=== PATIENT | male | born 1980 | race African-American/Black ===

== ENCOUNTER 2018-10-03 13:19 | Observation (INO) ==
[2018-10-03] MEDS ORDERED: 0.9 % Sodium Chloride 1,000 ML IVC ONE (14:00)
--- NOTE | 2018-10-03 14:02 | Emergency Department Note ---
Disposition Clinical Impression: History of seizure disorder, Psychiatric illness, Marijuana abuse, Alcohol withdrawal delirium, acute, hyperactive Disposition: Admitted As Inpatient Referrals: NONE,PCP [Primary Care Provider] - Forms: ED Satisfaction Letter Time of Disposition: 20:19 General Adult HPI - General Chief complaint: ED Seizure Stated complaint: albinozures Time Seen by Provider: 10/03/18 13:30 Source: patient, EMS Limitations: no limitations - History of Present Illness HPI Narrative: 38-year-old male with a history of seizure disorder and psychiatric disease reports emergency department with tremulousness and confusion. There is no history of trauma given he is not known to be diabetic. The patient had a recent CT scan scan of his head which was negative in July of this year. The patient is unable to give a clear history regarding his concerns. Nursing noticed tremulous behavior and confusion. No other history is immediately available from the patient. On review of the records the patient has a history of alcohol abuse and alcohol withdrawal. No trauma is reported. Pain Scale: 0 - Related Data Home Medications Medication Instructions Recorded Confirmed levETIRAcetam [Levetiracetam] 1,000 mg PO BID 03/12/18 05/04/18 Buspirone HCl [Buspar] 5 mg PO BID 05/04/18 05/04/18 Citalopram [CeleXA] 20 mg PO DAILY 05/04/18 05/04/18 Melatonin 1 mg PO HS 05/04/18 05/04/18 Previous Rx's Medication Instructions Recorded hydrOXYzine pamoate [HydrOXYzine 50 mg PO TID #14 cap 07/22/18 Pamoate] Allergies Allergy/AdvReac Type Severity Reaction Status Date / Time No Known Allergies Allergy Verified 08/17/18 18:04 All systems ED: reviewed and negative except as stated. Limitations: ROS unobtainable due to patients medical condition Past Medical History - Past Medical History Medical history: Reports: seizures, other Surgical history: Reports: non-contributory Psychiatric history: Reports: no psych history - Social History Smoking Status: Current every day smoker Smokeless Tobacco Status: No Alcohol use: Reports: occasionally, heavy, recent Drug use: Reports: marijuana Physical Exam - General Limitations: no limitations General appearance: alert, anxious, other (The patient is tremulous in general, he is holding a TV remote control in his hand speaking into it occasionally looking around the room not responding to questioning or following commands well. Piloerection noted.) - Head Head exam: atraumatic, normocephalic, normal inspection - Eye Eye exam: Present: normal appearance, PERRL, EOMI - ENT ENT exam: normal exam, normal oropharynx, mucous membranes moist, TM's normal bilaterally, normal external ear exam - Neck Neck exam: Present: normal inspection, full ROM, trachea midline - Chest Chest inspection: Present: symmetric chest wall rise. Absent: tenderness - Respiratory Respiratory exam: Present: normal lung sounds bilaterally. Absent: respiratory distress, prolonged expiratory phase - Cardiovascular Cardiovascular exam: Present: regular rate, normal rhythm - Abdominal Exam Abdominal exam: Present: soft, Non-Tender, normal bowel sounds. Absent: tend erness, distention, guarding, rebound, rigidity - Extremities Exam Extremities exam: Present: normal inspection, full ROM, normal capillary refill. Absent: tenderness, pedal edema, joint swelling, calf tenderness - Expanded Lower Extremity Exam Neurovascular/Tendon exam: Present: normal capillary refill. Absent: motor deficit, sensory deficit, tendon deficit, extremity cold to touch - Back Exam Back exam: Present: normal inspection, full ROM. Absent: tenderness, CVA tenderness (R), CVA tenderness (L), vertebral tenderness - Neurological Exam Neurological exam: Present: alert, CN II-XII intact, other (The patient moves head neck arms and legs in usual fashion and displays no unilateral defect.) - Psychiatric Psychiatric exam: Present: agitated, anxious - Skin Skin exam: Present: warm, dry, intact, normal color Course Vital Signs Temperature 98.6 F 10/03/18 13:25 Pulse Rate 82 10/03/18 13:25 Respiratory Rate 18 10/03/18 13:25 Blood Pressure 150/103 10/03/18 13:25 O2 Sat by Pulse Oximetry 100 10/03/18 13:25 Temperature 98.6 F 10/03/18 13:25 Pulse Rate 87 10/03/18 18:00 Respiratory Rate 24 10/03/18 18:00 Blood Pressure 146/92 10/03/18 18:00 O2 Sat by Pulse Oximetry 98 10/03/18 18:00 Oxygen Delivery Oxygen Delivery Room Air Medical Decision Making - MDM Narrative Medical decision making narrative: The patient was highly agitated tremulous and confused on arrival. 2 mg of Ativan were given, persistent tremulousness confusion and agitation were noted. A second dose of Ativan was given. The patient persisted in his confused state and was given Haldol and benztropine. IV fluid was also given. Chest x-ray EKG and laboratory studies obtained and reviewed. The patient improved and became more alert. I spoke with him directly, he describes a history of alcohol abuse and has not had any alcohol recently The patient's presentation is consistent with delirium tremens and alcohol withdrawal. He does have a history of psychiatric illness and does have a history of seizure disorder complicating the clinical picture. Based on the patient's significant confusion, potential delirium tremens, reported seizure disorder and acute confusional state, I thought it would be appropriate to admit the patient the hospital. He feels improved and is being monitored continuously. He is agreeable. I discussed the case with the hospitalist on-call who has accepted the patient to their care. The patient is pending admission. - Lab Data Lab results reviewed: Yes I reviewed the patient's lab results. Result diagrams: 10/03/18 14:23 10/03/18 14:23 Lab Results 10/03/18 10/03/18 10/03/18 Range/Units 14:23 14:23 16:36 WBC 11.1 (4.3-11.1) K/mcL RBC 4.73 (4.19-5.50) M/mcL Hgb 14.7 (12.9-16.9) g/dL Hct 42.8 (37.5-50.1) % MCV 90.5 (83.0-100.0) fL MCH 31.1 (28.0-33.3) pg MCHC 34.3 (31.6-35.5) g/dL RDW 13.2 (11.5-14.5) % Plt Count 259 (140-400) K/mcL MPV 10.7 (9.4-12.4) fL Immature Gran % 0.4 (0-4) % Seg Neutrophils % 74.1 % Lymphocytes % 15.5 % Monocytes % 9.4 % Eosinophils % 0.1 % Basophils % 0.5 % Neutrophils # 8.2 (1.6-8.9) K/mcL Lymphocytes # 1.7 (0.6-4.6) K/mcL Monocytes # 1.0 (0.0-1.3) K/mcL Eosinophils # 0.0 (0.0-0.6) K/mcL Basophils # 0.1 (0.0-0.2) K/mcL Sodium 141 (136-145) mEq/L Potassium 3.7 (3.5-5.1) mEq/L Chloride 101 (98-107) mEq/L Carbon Dioxide 26 (23-29) mEq/L BUN 7 (6-20) mg/dL Creatinine 0.71 (0.70-1.30) mg/dL Est GFR ( Amer) > 60 (> 60) Est GFR (Non-Af Amer) > 60 (> 60) BUN/Creatinine Ratio 10 (6-26) Glucose 171 H (70-105) mg/dL Calculated Osmolality 294 (280-300) Calcium 10.2 (8.6-10.3) mg/dL Total Bilirubin 0.7 (0.3-1.0) mg/dL Direct Bilirubin 0.1 (0.0-0.2) mg/dL Indirect Bilirubin 0.6 (0.0-1.2) mg/dL AST 49 H (13-39) Units/L ALT 37 (7-52) Units/L Alkaline Phosphatase 79 (34-104) Units/L Serum Total Protein 7.5 (6.4-8.9) g/dL Albumin 5.0 (3.5-5.7) g/dL Globulin 2.5 (2.4-3.5) g/dL Albumin/Globulin Ratio 2.0 (1.1-2.2) Urine Color Yellow (Yellow) Urine Clarity Clear (Clear) Urine pH 8.0 (5.0-8.0) pH Units Ur Specific Harper 1.017 (1.010-1.025) Urine Protein Negative (Neg-Trace) mg/dL Urine Glucose (UA) Normal (Normal) mg/dL Urine Ketones 15 H (Negative) mg/dL Urine Blood Negative (Negative) Urine Nitrite Negative (Negative) Urine Bilirubin Negative (Negative) Urine Urobilinogen Normal (Normal) mg/dL Ur Leukocyte Esterase Negative (Negative) Salicylates < 2.5 L (15.0-30.0) mg/dL Urine Opiates Screen (Nixdbc=177) ng/mL Ur Buprenorphine Scrn (Cutoff=5) ng/mL Acetaminophen < 10 L (10-20) mcg/mL Ur Barbiturates Screen (Wlcumk=308) ng/mL Ur Phencyclidine Scrn (Cutoff=25) ng/mL Ur Amphetamines Screen (Wyazcz=0105) ng/mL U Benzodiazepines Scrn (Xrckdw=484) ng/mL Urine Cocaine Screen (Cutoff= 300) ng/mL U Marijuana (THC) Screen (Cutoff = 50) ng/mL Ur Drug Screen Interp Ethyl Alcohol < 10 (Less than 10) mg/dL 10/03/18 Range/Units 16:50 WBC (4.3-11.1) K/mcL RBC (4.19-5.50) M/mcL Hgb (12.9-16.9) g/dL Hct (37.5-50.1) % MCV (83.0-100.0) fL MCH (28.0-33.3) pg MCHC (31.6-35.5) g/dL RDW (11.5-14.5) % Plt Count (140-400) K/mcL MPV (9.4-12.4) fL Immature Gran % (0-4) % Seg Neutrophils % % Lymphocytes % % Monocytes % % Eosinophils % % Basophils % % Neutrophils # (1.6-8.9) K/mcL Lymphocytes # (0.6-4.6) K/mcL Monocytes # (0.0-1.3) K/mcL Eosinophils # (0.0-0.6) K/mcL Basophils # (0.0-0.2) K/mcL Sodium (136-145) mEq/L Potassium (3.5-5.1) mEq/L Chloride (98-107) mEq/L Carbon Dioxide (23-29) mEq/L BUN (6-20) mg/dL Creatinine (0.70-1.30) mg/dL Est GFR ( Amer) (> 60) Est GFR (Non-Af Amer) (> 60) BUN/Creatinine Ratio (6-26) Glucose (70-105) mg/dL Calculated Osmolality (280-300) Calcium (8.6-10.3) mg/dL Total Bilirubin (0.3-1.0) mg/dL Direct Bilirubin (0.0-0.2) mg/dL Indirect Bilirubin (0.0-1.2) mg/dL AST (13-39) Units/L ALT (7-52) Units/L Alkaline Phosphatase (34-104) Units/L Serum Total Protein (6.4-8.9) g/dL Albumin (3.5-5.7) g/dL Globulin (2.4-3.5) g/dL Albumin/Globulin Ratio (1.1-2.2) Urine Color (Yellow) Urine Clarity (Clear) Urine pH (5.0-8.0) pH Units Ur Specific Harper (1.010-1.025) Urine Protein (Neg-Trace) mg/dL Urine Glucose (UA) (Normal) mg/dL Urine Ketones (Negative) mg/dL Urine Blood (Negative) Urine Nitrite (Negative) Urine Bilirubin (Negative) Urine Urobilinogen (Normal) mg/dL Ur Leukocyte Esterase (Negative) Salicylates (15.0-30.0) mg/dL Urine Opiates Screen Negative (Dldvgd=743) ng/mL Ur Buprenorphine Scrn Negative (Cutoff=5) ng/mL Acetaminophen (10-20) mcg/mL Ur Barbiturates Screen Negative (Nlejck=335) ng/mL Ur Phencyclidine Scrn Negative (Cutoff=25) ng/mL Ur Amphetamines Screen Negative (Vgktnq=8430) ng/mL U Benzodiazepines Scrn Negative (Yoeafd=564) ng/mL Urine Cocaine Screen Negative (Cutoff= 300) ng/mL U Marijuana (THC) Screen Positive H (Cutoff = 50) ng/mL Ur Drug Screen Interp See Below Ethyl Alcohol (Less than 10) mg/dL - Radiology Data Radiology results reviewed: Yes I reviewed the patient's radiology results.
[2018-10-03] MEDS ORDERED: *HR* LORazepam 2 MG/ML VIAL ONE (14:19)
[2018-10-03] MEDS ORDERED: *HR* LORazepam 2 MG/ML VIAL IVP ONE ×2 (14:21→14:57)
[2018-10-03 14:37] LABS: Basophils # 0.1 K/mcL (0.0-0.2); Basophils % 0.5 %; Eosinophils % 0.1 %; Hematocrit 42.8 % (37.5-50.1); Hemoglobin 14.7 g/dL (12.9-16.9); Immature Granulocytes % 0.4 % (0-4); Lymphocytes # 1.7 K/mcL (0.6-4.6); Lymphocytes % 15.5 %; Mean Corpuscular HGB Conc 34.3 g/dL (31.6-35.5); Mean Corpuscular Hemoglobin 31.1 pg (28.0-33.3); Mean Corpuscular Volume 90.5 fL (83.0-100.0); Mean Platelet Volume 10.7 fL (9.4-12.4); Monocytes % 9.4 %; Neutrophils # 8.2 K/mcL (1.6-8.9); Platelet Count 259 K/mcL (140-400); Red Blood Count 4.73 M/mcL (4.19-5.50); Red Cell Distribution Width 13.2 % (11.5-14.5); Segmented Neutrophils % 74.1 %; White Blood Count 11.1 K/mcL (4.3-11.1)
[2018-10-03 14:57] LABS: Acetaminophen < 10 mcg/mL (10-20); Alanine Aminotransferase 37 Units/L (7-52); Alkaline Phosphatase 79 Units/L (34-104); Aspartate Amino Transferase 49 Units/L (13-39); BUN/Creatinine Ratio 10 (6-26); Bilirubin,Direct 0.1 mg/dL (0.0-0.2); Bilirubin,Indirect 0.6 mg/dL (0.0-1.2); Bilirubin,Total 0.7 mg/dL (0.3-1.0); Blood Urea Nitrogen 7 mg/dL (6-20); Calcium 10.2 mg/dL (8.6-10.3); Carbon Dioxide 26 mEq/L (23-29); Chloride 101 mEq/L (98-107); Ethanol < 10 mg/dL (Less than 10); Globulin 2.5 g/dL (2.4-3.5); Glucose 171 mg/dL (70-105); Osmolality,Calculated 294 (280-300); Potassium 3.7 mEq/L (3.5-5.1); Salicylate < 2.5 mg/dL (15.0-30.0); Sodium 141 mEq/L (136-145); Total Protein 7.5 g/dL (6.4-8.9); eGFR For African Americans > 60 (> 60); eGFR For Non-African Americans > 60 (> 60)
[2018-10-03] MEDS ORDERED: Haloperidol Lactate 5 MG/ML VIAL ONE (15:07)
[2018-10-03] MEDS ORDERED: Haloperidol Lactate 5 MG/ML VIAL IM ONE (15:09)
[2018-10-03 17:02] LABS: Bilirubin,Urine Negative (Negative); Blood,Urine Negative (Negative); Clarity,Urine Clear (Clear); Color,Urine Yellow (Yellow); Glucose,Urine (UA) Normal (Normal); Ketones,Urine 15 mg/dL (Negative); Leukocyte Esterase,Urine Negative (Negative); Nitrite,Urine Negative (Negative); Protein,Urine Negative (Neg-Trace); Specific Gravity,Urine 1.017 (1.010-1.025); Urobilinogen,Urine Normal (Normal)
[2018-10-03 17:19] LABS: Amphetamine Screen,Urine Negative ng/mL (Cutoff=1000); Barbiturate Screen,Urine Negative ng/mL (Cutoff=200); Benzodiazepines Screen,Urine Negative ng/mL (Cutoff=200); Cannabinoid Screen,Urine Positive ng/mL (Cutoff = 50); Cocaine Screen,Urine Negative ng/mL (Cutoff= 300); Opiate Screen,Urine Negative ng/mL (Cutoff=300); Phencyclidine Screen,Urine Negative ng/mL (Cutoff=25)
[2018-10-03] MEDS ORDERED: *HR* LORazepam 2 MG/ML VIAL IVP PRN (20:27)
--- NOTE | 2018-10-03 20:43 | Internal Med History&Physical ---
Date of Encounter: 10/03/18 Time of Encounter: 20:42 Internal Medicine - H&P: HPI Chief complaint: Right Lower Quadrant abdominal pain History of present illness: Mr. Baum is a 38 year old male with a past medical history of seizures and depression who presented to the ED with tremulousness and confusion. Patient is unable to give a clear history regarding his concerns. Nursing noticed tremulous behavior and confusion. No other history is immediately available fr om the patient. On review of the records the patient has a history of alcohol abuse and alcohol withdrawal. No trauma is reported. On my assessment the patient he was awake and alert to self. Hands were noted to be tremulous. He he was unsure as to where he was or how he got there. Patient could not tell me if he had a seizure or when his last seizure was. Patient states he is compliant with his medications. He apparently reported a history of alcohol abuse in the ED but denies any alcohol use recently. Denies any fever, chills, chest pain, shortness of breath, cough, nausea, vomiting, diarrhea. On arrival patient was afebrile, hemodynamically stable. Lab work was unremarkable. Urine toxicology positive for marijuana. Ethanol level less than 10. Chest x-ray was normal. A Keppra level was obtained which was found to be low. 2 mg of Ativan were given, persistent tremulousness confusion and agitation. Based on the patient's significant confusion, potential delirium tremens, reported seizure disorder and acute confusional state, patient was admitted for further evaluation and observation. Past Med Surg Social Fam HX - Past Medical History Medical history: seizures, other Psychiatric history: no psych history - Past Surgical History Surgical History: non-contributory Additional surgical history: fistula to buttock - Social History Smoking Status: Current every day smoker Smokeless Tobacco Status: No Alcohol use: occasionally, heavy, recent Drug use: marijuana - Family History Mother Hx Family Endocrine Disorder: Yes (dm) Father Hx Family Endocrine Disorder: Yes (dm) Internal Medicine - H&P: Meds levETIRAcetam [Levetiracetam] 1,000 mg PO BID 03/12/18 [History] Buspirone HCl [Buspar] 5 mg PO BID 05/04/18 [History] Citalopram [CeleXA] 20 mg PO DAILY 05/04/18 [History] Melatonin 1 mg PO HS 05/04/18 [History] hydrOXYzine pamoate [HydrOXYzine Pamoate] 50 mg PO TID #14 cap 07/22/18 [Rx] Allergy/AdvReac Type Severity Reaction Status Date / Time No Known Allergies Allergy Verified 08/17/18 18:04 All Systems PM: A 10-system review of systems was performed and is negative for pertinent findings except as documented above in the HPI. - Constitutional Constitutional: no chills, no fever(s), no night sweats - EENT Eyes: no change in vision, no discharge, no pain, no photophobia Ears: no ear discharge, no ear pain, no tinnitus Nose, mouth and throat: no dysphagia, no nasal discharge, no neck pain, no sore throat - Cardiovascular Cardiovascular ROS IM: no chest pain, no diaphoresis, no dyspnea, no lightheadedness, no palpitations, no syncope - Respiratory Respiratory: no cough, no dyspnea, no wheezing, no excessive phlegm production - Gastrointestinal Gastrointestinal: no abdominal pain, no diarrhea, no hematemesis, no hematochezia, no melena, no nausea, no vomiting - Musculoskeletal Musculoskeletal ROS IM: no numbness, no tingling - Integumentary Integumentary IM: no rash, no unusual bruising - Neurological Neurological ROS: no confusion, no convulsions, no focal weakness, no numbness, no tingling, no tremor(s) - Hematologic/Lymphatic Hematologic/Lymphatic: no easy bruising - Constitutional Vitals: Temp Pulse Resp BP Pulse Ox 98.6 F 87 24 146/92 98 10/03/18 13:25 10/03/18 18:00 10/03/18 18:00 10/03/18 18:00 10/03/18 18:00 Exam: General: Alert and oriented 3 Skin:Normal color, no rash, no lesions. HEENT:EOM, pupils equal, round and reactive. Cardiovascular:Normal S1 & S2, no rubs, murmurs or gallops. No JVD. Pulse regular. Lungs:Normal breath sounds, no wheezes or crackles. Abdomen:Soft, non-tender, no rigidity. Extremities:No deformity, no edema or tenderness, no joint swelling or clubbing. Palms tremulous Neurological:Normal cognition and motor skills. Pulses:Carotid and radial pulses normal +2. Rest of the physical exam is non contributory Internal Med - H&P Results - Labs CBC & Chem 7: 10/03/18 14:23 10/03/18 14:23 Labs: Short CBC 10/03/18 Range/Units 14:23 WBC 11.1 (4.3-11.1) K/mcL Hgb 14.7 (12.9-16.9) g/dL Hct 42.8 (37.5-50.1) % Plt Count 259 (140-400) K/mcL Neutrophils # 8.2 (1.6-8.9) K/mcL BMP 10/03/18 14:23 Sodium 141 Potassium 3.7 Chloride 101 Carbon Dioxide 26 BUN 7 Creatinine 0.71 Glucose 171 H Calcium 10.2 Liver Function 10/03/18 Range/Units 14:23 Total Bilirubin 0.7 (0.3-1.0) mg/dL Direct Bilirubin 0.1 (0.0-0.2) mg/dL AST 49 H (13-39) Units/L ALT 37 (7-52) Units/L Alkaline Phosphatase 79 (34-104) Units/L Albumin 5.0 (3.5-5.7) g/dL Urine 10/03/18 Range/Units 16:36 Urine Color Yellow (Yellow) Urine Clarity Clear (Clear) Urine pH 8.0 (5.0-8.0) pH Units Ur Specific [place] 1.017 (1.010-1.025) Urine Protein Negative (Neg-Trace) mg/dL Urine Glucose (UA) Normal (Normal) mg/dL - Impressions ITS Impressions Chest X-Ray 10/03/18 14:01 IMPRESSION: No acute cardiopulmonary findings. D/ / Jennifer Vu MD / Jennifer Vu MD Interpreting Provider: Jennifer Vu MD - Assessment and Plan (1) Encephalopathy Current Visit: No Status: Resolved Assessment and plan: Acute encephalopathy characterized by confusion, agitation and tremulousness in the setting of previous history of alcohol, substance abuse and seizures. Laboratory workup was unremarkable. Urine drug screen positive for marijuana. Differential includes possible alcohol withdrawal versus seizures. Keppra level found to be low. Patient received 2 mg of Ativan due to his tremulousness and agitation concerning for alcohol withdrawal. -We will admit patient and place on CIWA protocol -Seizure precautions -Given patient's low Keppra level will give one-time dose of 1 thousand milligrams of Keppra IV. (2) Alcohol withdrawal Current Visit: No Status: Acute Assessment and plan: Given patient's history of alcohol use and tremulousness we will start patient on CIWA protocol. We will start patient on banana bag. Qualifiers: Complication of substance-induced condition: with delirium Qualified Code(s): F10.231 - Alcohol dependence with withdrawal delirium (3) History of seizure disorder Current Visit: Yes Status: Acute Assessment and plan: History of seizure disorder. Patient is currently on 1000 g of Keppra twice a day. As noted above, Keppra level was found to be low. Patient given a one- time dose of IV Keppra 1000 mg. -Resume home dose in the morning - Time Spent With Patient Total time spent is greater than 50% in coordination of care (as documented) at patient's floor/unit and/or counseling patient:
[2018-10-03] MEDS: 0.9 % Sodium Chloride 1,000 ML IVC SCH (22:11)
[2018-10-04] MEDS ORDERED: levETIRAcetam 1,000 MG in 0.9 % Sodium Chloride 100 ML IVPB ONE (04:58)
[2018-10-04] MEDS ORDERED: levETIRAcetam 250 MG TABLET PO SCH (09:00)
--- NOTE | 2018-10-04 09:13 | Internal Med Progress Note ---
Hospitalist Progress Note - Encounter Date of Encounter: 10/04/18 Time of Encounter: 09:09 - Subjective Interval History: Pt seen and examined in the room. he is currently alert and oriented, answering questions appropriately. He reported that he had no further seizure activity overnight. He also reported that he has not been drinking alcohol for last 2-3 days. He has been trying to be sober in the past but had never been participated in any detox program. He also reported headache has been taking all his medications including AED. He admitted he has been using marijuana but denies taking other illicit drugs. - Exam Vitals: Temp Pulse Resp BP Pulse Ox 98.1 F 65 16 147/82 99 10/04/18 07:07 10/04/18 07:07 10/04/18 07:07 10/04/18 07:07 10/04/18 07:07 Exam: General: Alert and oriented 3 Skin:Normal color, no rash, no lesions. HEENT:EOM, pupils equal, round and reactive. Cardiovascular:Normal S1 & S2, no rubs, murmurs or gallops. No JVD. Pulse regular. Lungs:Normal breath sounds, no wheezes or crackles. Abdomen:Soft, non-tender, no rigidity. Extremities:No deformity, no edema or tenderness, no joint swelling or clubbing. Palms tremulous Neurological:Normal cognition and motor skills. Pulses:Carotid and radial pulses normal +2. Rest of the physical exam is non contributory - Assessment and Plan (1) Encephalopathy Current Visit: No Status: Resolved Assessment and Plan: 10/03 Acute encephalopathy characterized by confusion, agitation and tremulousness in the setting of previous history of alcohol, substance abuse and seizures. Laboratory workup was unremarkable. Urine drug screen positive for marijuana. Differential includes possible alcohol withdrawal versus seizures. Keppra level found to be low. Patient received 2 mg of Ativan due to his tremulousness and agitation concerning for alcohol withdrawal. -We will admit patient and place on [facility] protocol -Seizure precautions -Given patient's low Keppra level will give one-time dose of 1 thousand milligrams of Keppra IV. 10/04 Patient mental status has returned to his baseline. He has history of alcohol abuse as well as seizure disorder. Both serum alcohol and the Keppra level were low, indicating that patient likely noncompliant with treatment, he is also likely undergoing alcohol withdrawal. He received IV Ativan and the Keppra at the ED. Keppra was resumed at home dose. Neurology was consulted, appreciate help. Continue CIWA, Ativan as needed, and thiamine and folate supplementation. (2) Alcohol withdrawal Current Visit: No Status: Acute Assessment and Plan: Same as above. (3) History of seizure disorder Current Visit: No Status: Chronic Assessment and Plan: History of seizure disorder. Patient is currently on 1000 g of Keppra twice a day. As noted above, Keppra level was found to be low. Patient given a one- time dose of IV Keppra 1000 mg. Patient reported he had a seizure, however, based on the history, it looks like he only had a tremor instead of seizure activity. By reviewing the chart, patient had a similar complaint in the past about 6 months ago, at that time, EKG was negative for epileptic waveform. We will continue Keppra at the home dose at this point, consult neurology. DVT Prophylaxis: Heparin subcutaneous. - Time Spent with Patient Total time spent is greater than 50% in coordination of care (as documented) at patient's floor/unit and/or counseling patient: Greater than 35 minutes Plan of Care Discussed with: patient Internal Medicine: Result - Labs CBC & Chem 7: 10/03/18 14:23 10/03/18 14:23 Labs: Short CBC 10/03/18 Range/Units 14:23 WBC 11.1 (4.3-11.1) K/mcL Hgb 14.7 (12.9-16.9) g/dL Hct 42.8 (37.5-50.1) % Plt Count 259 (140-400) K/mcL Neutrophils # 8.2 (1.6-8.9) K/mcL BMP 10/03/18 14:23 Sodium 141 Potassium 3.7 Chloride 101 Carbon Dioxide 26 BUN 7 Creatinine 0.71 Glucose 171 H Calcium 10.2 Liver Function 10/03/18 Range/Units 14:23 Total Bilirubin 0.7 (0.3-1.0) mg/dL Direct Bilirubin 0.1 (0.0-0.2) mg/dL AST 49 H (13-39) Units/L ALT 37 (7-52) Units/L Alkaline Phosphatase 79 (34-104) Units/L Albumin 5.0 (3.5-5.7) g/dL Urine 10/03/18 Range/Units 16:36 Urine Color Yellow (Yellow) Urine Clarity Clear (Clear) Urine pH 8.0 (5.0-8.0) pH Units Ur Specific [place] 1.017 (1.010-1.025) Urine Protein Negative (Neg-Trace) mg/dL Urine Glucose (UA) Normal (Normal) mg/dL - Impressions Impressions Chest X-Ray 10/03/18 14:01 IMPRESSION: No acute cardiopulmonary findings. D/ / Jennifer uV MD / Jennifer Vu MD Interpreting Provider: Jennifer Vu MD Consult Discharge Plan - Plan Referrals: NONE,PCP [Primary Care Provider] - (2) Alcohol withdrawal Qualifiers: Complication of substance-induced condition: with delirium Qualified Code(s): F10.231 - Alcohol dependence with withdrawal delirium
[2018-10-04] MEDS: 0.9 % Sodium Chloride 1,000 ML IVC SCH ×2 (10:08→23:42)
--- NOTE | 2018-10-04 14:50 | Neurology - Consult Note ---
Date of Encounter: 10/04/18 Time of Encounter: 13:30 Assessment and Plan (1) Seizures Current Visit: Yes Status: Acute Discontinue Keppra as patient nonadherent at home due to twice daily dosing. Start Depakote 500mg IV loading dose to be administered slowly then Depakote 500mg PO QHS for preventing future seizures. (2) Encephalopathy Current Visit: Yes Status: Acute Given patients intermittent confusion unable to rule out alcohol withdrawal seizures as a cause. Patient continues to display features of alcohol withdrawal. Continue CIWA. History of Present Illness Chief complaint: "Jittery" HPI: Mr. Baum is a 38 year old male with a past medical history of alcohol use disorder and generalized tonic clonic seizures. He reports he was at his moms "a couple days ago" when he had seizure activity witness by his mother. This occurred yesterday, patient has orientation to person, place and purpose but not time. He states the last thing he remembers was standing up from his chair then he woke up at the hospital. He admits to continued alcohol consumption recently and poor adherence to his AED medications. He reports that he takes his Keppra "maybe once a day." He requests a medication with once daily dosing as "A lot of time I forget my night dose." He has deficits in problem solving abilities and is unable to name the months of the year backwards or complete serial 7's. While he lacked deficits in delayed recall on MMSE he was unable to convey an accurate timeline for when his most recent seizure was, or when his last alcoholic beverage was consumed. He denies dizziness, numnbess/tingling, weakness, nausea/vomitting, blurry/double vision, chest pain or lightheadedness. We discussed treatment options as he would like to discontinue keppra as the twice daily dosing is difficult for him to adhere too. We discussed Depakote including risks benefits and most common side effects and he agrees to a trial of Depakote. He admits to biting his tongue during this most recent seizure but denies loss of bowel or bladder function. Past Med Surg Social Fam HX - Past Medical History Medical history: seizures, other Psychiatric history: no psych history - Past Surgical History Surgical History: non-contributory Additional surgical history: anal fistula repair - Social History Smoking Status: Current every day smoker Packs per day: 1 Smokeless Tobacco Status: No Alcohol use: occasionally, heavy, recent Drug use: marijuana - Family History Mother Hx Family Endocrine Disorder: Yes (dm) Father Hx Family Endocrine Disorder: Yes (dm) Medications and Allergies levETIRAcetam [Levetiracetam] 1,000 mg PO BID 03/12/18 [History] Buspirone HCl [Buspar] 5 mg PO BID 05/04/18 [History] Citalopram [CeleXA] 20 mg PO DAILY 05/04/18 [History] hydrOXYzine pamoate [HydrOXYzine Pamoate] 50 mg PO Q8H PRN 10/04/18 [History] Allergy/AdvReac Type Severity Reaction Status Date / Time No Known Allergies Allergy Verified 10/04/18 10:40 All Systems: The remainder of the systems were reviewed and are negative - Constitutional Constitutional ROS IM: fatigue, no anorexia, no chills, no fever(s), no headache(s) - Nose, Mouth, Throat Nose, mouth and throat: no abnormal hearing, no disequilibrium, no dizziness, no dysphagia, no headache(s) - Cardiovascular Cardiovascular ROS IM: no chest pain, no claudication, no diaphoresis, no dyspnea, no leg edema - Respiratory Respiratory IM: no cough, no hemoptysis, no wheezing, no stridor - Gastrointestinal Gastrointestinal: as per HPI - Musculoskeletal Musculoskeletal ROS IM: no abnormal gait, no arthralgias, no atrophy, no numbn ess, no tingling - Integumentary Integumentary IM: no rash, no jaundice - Neurological Neurological ROS: confusion (patient does have some confusion especially when it comes to orientation in time and timing of events), no abnormal gait, no abnormal hearing, no behavioral changes, no disequilibrium, no dizziness, no focal weakness, no headache(s), no loss of vision - Psychiatric Psychiatric general PM: no abnormal sleep pattern, no anxiety, no behavioral changes - Endocrine Endocrine IM: fatigue Physical Examination - Vital Signs Vital Signs: Initial Vital Signs Temp Pulse Resp BP Pulse Ox 98.6 F 82 18 150/103 100 10/03/18 13:25 10/03/18 13:25 10/03/18 13:25 10/03/18 13:25 10/03/18 13:25 - Constitutional General appearance: comfortable - Neurologic Sensorimotor examination: intact Motor examination - right side: 5/5: biceps, triceps, engineering group manager, hip flexors, tibialis Anterior Motor examination - left side: 5/5: biceps, triceps, hip flexors, engineering group manager, tibialis Anterior Detailed sensory examination: intact Posture: other (None) Reflex and gait examination: normal gait Reflexes: Biceps: 3+, Triceps: 3+, Brachioradialis: 3+, Patella: 3+, Achilles: 3+ Mental Status Examination: awake, alert, oriented to person, oriented to place, answers questions appropriately, no agnosia, no aphasia, no aproxia, impaired memory (Was unable to recall much of the past few days; ), MMSE (Deficits in problem solving with inability to complete serial 7's which may be influenced by recent ativan administration), not reliable historian (due to current encephalopathy) Cranial nerve examination: PERRL, EOMI, visual bernard intact, corneal reflexes brisk symmetrically, sensory to face intact, no facial asymmetry is present, no dysarthria, hearing is intact symmetrically, soft palate elevates bilaterally upon phonation, flexes SCM and trapezius muscles symmetrically with full power, tongue protrudes midline, no atrophy or facial fasiculations present Cerebellar examination: no gait ataxia, no difficulty with rapid alternating movements Results - Laboratory Findings CBC and BMP: 10/03/18 14:23 10/03/18 14:23 Abnormal lab findings: Abnormal lab results Glucose 171 mg/dL (70-105) H 10/03/18 14:23 POC Glucose 101 mg/dL (70-99) H 10/03/18 22:13 AST 49 Units/L (13-39) H 10/03/18 14:23 Urine Ketones 15 mg/dL (Negative) H 10/03/18 16:36 Salicylates < 2.5 mg/dL (15.0-30.0) L 10/03/18 14:23 Acetaminophen < 10 mcg/mL (10-20) L 10/03/18 14:23 Levetiracetam < 3 mcg/mL (6-46) L 10/03/18 20:50 U Marijuana (THC) Screen Positive ng/mL (Cutoff = 50) H 10/03/18 16:50 Consult Discharge Plan - Plan Referrals: NONE,PCP [Primary Care Provider] -
[2018-10-04] MEDS ORDERED: Valproic Acid INJ 500 MG in 0.9 % Sodium Chloride 100 ML IVPB ONE (15:00)
[2018-10-04] MEDS ORDERED: Thiamine (B-1) 100 MG, Folic Acid 1 MG, MVI, adult with vitamin K 10 ML in 0.9 % Sodi... IVPB SCH (18:00)
[2018-10-04] MEDS ORDERED: Divalproex (24 HR) 500 MG TABLET PO SCH (21:00)
[2018-10-05 03:34] LABS: Hematocrit 39.5 % (37.5-50.1); Hemoglobin 13.2 g/dL (12.9-16.9); Mean Corpuscular HGB Conc 33.4 g/dL (31.6-35.5); Mean Corpuscular Hemoglobin 31.1 pg (28.0-33.3); Mean Corpuscular Volume 92.9 fL (83.0-100.0); Platelet Count 187 K/mcL (140-400); Red Blood Count 4.25 M/mcL (4.19-5.50); Red Cell Distribution Width 12.7 % (11.5-14.5); White Blood Count 7.7 K/mcL (4.3-11.1)
[2018-10-05 03:45] LABS: BUN/Creatinine Ratio 6 (6-26); Blood Urea Nitrogen 4 mg/dL (6-20); Calcium 9.3 mg/dL (8.6-10.3); Carbon Dioxide 25 mEq/L (23-29); Chloride 103 mEq/L (98-107); Glucose 106 mg/dL (70-105); Osmolality,Calculated 279 (280-300); Potassium 3.4 mEq/L (3.5-5.1); Sodium 136 mEq/L (136-145); eGFR For African Americans > 60 (> 60); eGFR For Non-African Americans > 60 (> 60)
[2018-10-05] MEDS: 0.9 % Sodium Chloride 1,000 ML IVC SCH (04:12)
--- NOTE | 2018-10-05 06:11 | Electrocardiograph Report ---
[employer] [employer] [facility] Test Date: 2018-10-03 Pat Name: Ankur Baum Department: [id number] Room: 3B22 Gender: M [employer]: : 1980 Requested By: Paul Arreaga Order Number: [id number] Reading MD: Donnie Matta Measurements Intervals [place] Rate: 82 P: 68 TN: 153 QRS: 26 QRSD: 96 T: 56 QT: 405 QTc: 473 Interpretive Statements Sinus rhythm Electronically Signed On 10-05-2018 6:10:00 EDT by Donnie Matta
[2018-10-05 07:18] VITALS: BP 136/82
--- NOTE | 2018-10-05 07:49 | Discharge Summary ---
- NOTES TO OUTPATIENT PROVIDER Notes to Outpatient Provider: f/u with neurology within a week. f/u with PCP within a week. Date of Encounter: 10/05/18 Time of Encounter: 07:39 - Discharge Diagnosis (1) Encephalopathy Priority: Primary Status: Acute (2) Alcohol withdrawal Priority: Primary Status: Acute Qualifiers: Complication of substance-induced condition: with delirium Qualified Code(s): F10.231 - Alcohol dependence with withdrawal delirium (3) History of seizure disorder Priority: Primary Status: Chronic Hospital course: Mr. Baum is a 38 year old male with a past medical history of seizures and depression who presented to the ED with tremulousness and confusion. Patient is unable to give a clear history regarding his concerns. Nursing noticed tremulous behavior and confusion. No other history is immediately available from the patient. On review of the records the patient has a history of alcohol abuse and alcohol withdrawal. No trauma is reported. On my assessment the patient he was awake and alert to self. Hands were noted to be tremulous. He he was unsure as to where he was or how he got there. Patient could not tell me if he had a seizure or when his last seizure was. Patient states he is compliant with his medications. He apparently reported a history of alcohol abuse in the ED but denies any alcohol use recently. Urine toxicology positive for marijuana. Ethanol level less than 10. Chest x-ray was normal. A Keppra level was obtained which was found to be low. 2 mg of Ativan were given. Based on the patient's significant confusion, potential delirium tremens, reported seizure disorder and acute confusional state, patient was admitted for further evaluation and observation. Patient is well known to our neurological service, neurology recommended switch Keppra 2 times a day regimen to Depakote once a day regimen as patient stated that once a day regimen might improve his compliance with medications. Patient also received 1 dose of valproic acid IV as well as thiamine supplement while in the hospital. He had no further witnessed the seizure. Abstinence from drug use including marijuana and alcohol was also discussed with patient. He is discharged home today, follow-up with PCP and neurology within a week. Discharge discussed with: patient Time spent discussing smoking cessation with patient: more than 10 minutes - Time Spent with Patient Total time spent providing and/or coordinating discharge services: Time spent: Greater than 30 minutes - Discharge Medications Prescriptions: New Divalproex (24 HR) [Depakote ER (24 HR)] 500 mg PO DAILY #30 tab.er.24h Thiamine (B-1) [Vitamin B-1] 100 mg PO DAILY #30 tablet Continued Buspirone HCl [Buspar] 5 mg PO BID Citalopram [CeleXA] 20 mg PO DAILY hydrOXYzine pamoate [HydrOXYzine Pamoate] 50 mg PO Q8H PRN PRN Reason: Anxiety Discontinued levETIRAcetam [Levetiracetam] 1,000 mg PO BID Home Medications: Buspirone HCl [Buspar] 5 mg PO BID 05/04/18 [History] Citalopram [CeleXA] 20 mg PO DAILY 05/04/18 [History] hydrOXYzine pamoate [HydrOXYzine Pamoate] 50 mg PO Q8H PRN 10/04/18 [History] Divalproex (24 HR) [Depakote ER (24 HR)] 500 mg PO DAILY #30 tab.er.24h 10/05/18 [Rx] Thiamine (B-1) [Vitamin B-1] 100 mg PO DAILY #30 tablet 10/05/18 [Rx] Allergies/Adverse Reactions: Allergy/AdvReac Type Severity Reaction Status Date / Time No Known Allergies Allergy Verified 10/04/18 10:40 Date of admission: 10/03/18 20:29 Primary care physician: PCP NONE Consults: 10/04/18 09:06 Consult to Neurology [CONS] Routine Consulting Provider: Neurology [facility] Reason for Consult: seizure Call Completed: Yes Anticipated date of discharge: 10/05/18 - Constitutional Vitals: Temp Pulse Resp BP Pulse Ox 98.4 F 67 17 136/82 99 10/05/18 07:17 10/05/18 07:17 10/05/18 07:17 10/05/18 07:17 10/05/18 07:17 General appearance: Present: A&O X 3 Exam: General: Alert and oriented 3 Skin:Normal color, no rash, no lesions. HEENT:EOM, pupils equal, round and reactive. Cardiovascular:Normal S1 & S2, no rubs, murmurs or gallops. No JVD. Pulse regular. Lungs:Normal breath sounds, no wheezes or crackles. Abdomen:Soft, non-tender, no rigidity. Extremities:No deformity, no edema or tenderness, no joint swelling or clubbing. Palms tremulous Neurological:Normal cognition and motor skills. Pulses:Carotid and radial pulses normal +2. Rest of the physical exam is non contributory - Patient Status Disposition: Home, Self-Care Condition: Fair Functional capacity at discharge: independent ambulation Overall status at discharge: patient is progressing back to baseline - Discharge Instructions Follow Up With: NONE,PCP [Primary Care Provider] - - Diet and Activity Activity: increase activity as tolerated Diet: advance to your usual diet
[2018-10-07] MEDS ORDERED: Folic Acid 1 MG TABLET PO SCH (09:00)
== END 2018-10-05 07:24 | disposition home or self-care (01) ==
LOC: EMEROOARM 13:19 → 3BNU 13:19
PROVIDERS: ADMIT Internal Medicine; ATTEND Internal Medicine

== ENCOUNTER 2019-04-18 11:28 | Observation (INO) ==
[2019-04-18] MEDS ORDERED: 0.9 % Sodium Chloride 1,000 ML IVC ONE (12:21)
[2019-04-18 12:33] LABS: Basophils # 0.1 K/mcL (0.0-0.2); Basophils % 0.7 %; Hematocrit 45.6 % (37.5-50.1); Hemoglobin 16.5 g/dL (12.9-16.9); Immature Granulocytes % 0.1 % (0-4); Lymphocytes # 0.7 K/mcL (0.6-4.6); Lymphocytes % 8.7 %; Mean Corpuscular HGB Conc 36.2 g/dL (31.6-35.5); Mean Corpuscular Hemoglobin 30.7 pg (28.0-33.3); Mean Corpuscular Volume 84.9 fL (83.0-100.0); Mean Platelet Volume 10.2 fL (9.4-12.4); Monocytes # 0.7 K/mcL (0.0-1.3); Monocytes % 9.5 %; Neutrophils # 6.1 K/mcL (1.6-8.9); Platelet Count 287 K/mcL (140-400); Red Blood Count 5.37 M/mcL (4.19-5.50); Red Cell Distribution Width 13.4 % (11.5-14.5); White Blood Count 7.5 K/mcL (4.3-11.1)
[2019-04-18 12:45] LABS: Acetaminophen < 10 mcg/mL (10-20); Alanine Aminotransferase 48 Units/L (7-52); Albumin 5.4 g/dL (3.5-5.7); Albumin/Globulin Ratio 1.8 (1.1-2.2); Alkaline Phosphatase 79 Units/L (34-104); Aspartate Amino Transferase 76 Units/L (13-39); BUN/Creatinine Ratio 12 (6-26); Bilirubin,Total 1.6 mg/dL (0.3-1.0); Blood Urea Nitrogen 10 mg/dL (6-20); Calcium 10.6 mg/dL (8.6-10.3); Carbon Dioxide 24 mEq/L (23-29); Chloride 91 mEq/L (98-107); Ethanol 10 mg/dL (Less than 10); Glucose 128 mg/dL (70-105); Magnesium 2.1 mg/dL (1.6-2.6); Osmolality,Calculated 287 (280-300); Phosphorous 3.7 mg/dL (2.7-4.5); Sodium 138 mEq/L (136-145); Total Protein 8.4 g/dL (6.4-8.9); Valproate < 4 mcg/mL (50-100); eGFR For African Americans > 60 (> 60); eGFR For Non-African Americans > 60 (> 60)
[2019-04-18 13:08] LABS: Bilirubin,Urine Negative (Negative); Blood,Urine Negative (Negative); Clarity,Urine Clear (Clear); Color,Urine Dark Yellow (Yellow); Glucose,Urine (UA) Normal (Normal); Ketones,Urine 80 mg/dL (Negative); Leukocyte Esterase,Urine Trace (Negative); Nitrite,Urine Negative (Negative); PH,Urine 7.5 pH Units (5.0-8.0); Protein,Urine 100 mg/dL (Neg-Trace); Specific Gravity,Urine 1.026 (1.010-1.025); Urobilinogen,Urine Normal (Normal)
[2019-04-18 13:10] LABS: Bacteria,Urine None Seen per hpf (None-Few); Hyaline Casts,Urine None Seen per lpf (None-Few); RBC,Urine 0-3 per hpf (0-3); Squamous Epithelial Cell,Urine Many per lpf (None-Few); WBC,Urine 0-3 per hpf (0-3)
[2019-04-18 13:21] LABS: Amphetamine Screen,Urine Negative ng/mL (Cutoff=1000); Barbiturate Screen,Urine Negative ng/mL (Cutoff=200)
[2019-04-18 13:22] LABS: Benzodiazepines Screen,Urine Negative ng/mL (Cutoff=300); Cannabinoid Screen,Urine Positive ng/mL (Cutoff = 50); Cocaine Screen,Urine Negative ng/mL (Cutoff= 300); Opiate Screen,Urine Negative ng/mL (Cutoff=300); Phencyclidine Screen,Urine Negative ng/mL (Cutoff=25)
[2019-04-18] MEDS ORDERED: levETIRAcetam 1,000 MG in 0.9 % Sodium Chloride 100 ML IVPB ONE (13:29)
[2019-04-18] MEDS ORDERED: Naloxone 0.4 MG/ML INJ IVP PRN (14:04)
[2019-04-18] MEDS ORDERED: Ondansetron 4 MG/2 ML VIAL IVP PRN (14:04)
[2019-04-18] MEDS ORDERED: *HR* LORazepam 2 MG/ML VIAL IVP PRN ×2 (14:07)
[2019-04-18] MEDS: Ringers Solution, Lactated 1,000 ML IVC SCH (16:17)
[2019-04-18] MEDS: levETIRAcetam 250 MG TABLET PO SCH (21:46)
[2019-04-18] MEDS: *HR* LORazepam 2 MG/ML VIAL IVP PRN (21:58)
[2019-04-19] MEDS: *HR* LORazepam 2 MG/ML VIAL IVP PRN (03:49)
[2019-04-19] MEDS: Ringers Solution, Lactated 1,000 ML IVC SCH (03:49)
[2019-04-19 05:49] LABS: Basophils % 0.5 %; Eosinophils % 0.4 %; Hematocrit 44.6 % (37.5-50.1); Hemoglobin 15.6 g/dL (12.9-16.9); Immature Granulocytes % 0.3 % (0-4); Lymphocytes # 1.6 K/mcL (0.6-4.6); Lymphocytes % 20.2 %; Mean Corpuscular Hemoglobin 30.6 pg (28.0-33.3); Mean Corpuscular Volume 87.6 fL (83.0-100.0); Monocytes % 13.1 %; Platelet Count 234 K/mcL (140-400); Red Blood Count 5.09 M/mcL (4.19-5.50); Red Cell Distribution Width 13.4 % (11.5-14.5); Segmented Neutrophils % 65.5 %; White Blood Count 7.7 K/mcL (4.3-11.1)
[2019-04-19] MEDS ORDERED: Divalproex (24 HR) 500 MG TABLET PO SCH (09:00)
[2019-04-19] MEDS ORDERED: Thiamine (B-1) 100 MG TABLET PO SCH (09:00)
[2019-04-19] MEDS ORDERED: Folic Acid 1 MG TABLET PO SCH (09:00)
[2019-04-19 09:09] VITALS: BP 131/84
[2019-04-19] MEDS: levETIRAcetam 250 MG TABLET PO SCH (09:14)
[2019-04-19 10:10] LABS: Alanine Aminotransferase 46 Units/L (7-52); Albumin 4.9 g/dL (3.5-5.7); Albumin/Globulin Ratio 1.6 (1.1-2.2); Alkaline Phosphatase 72 Units/L (34-104); Aspartate Amino Transferase 73 Units/L (13-39); BUN/Creatinine Ratio 15 (6-26); Bilirubin,Total 2.8 mg/dL (0.3-1.0); Blood Urea Nitrogen 11 mg/dL (6-20); Calcium 10.3 mg/dL (8.6-10.3); Carbon Dioxide 28 mEq/L (23-29); Chloride 95 mEq/L (98-107); Glucose 126 mg/dL (70-105); Osmolality,Calculated 285 (280-300); Potassium 3.5 mEq/L (3.5-5.1); Sodium 137 mEq/L (136-145); Total Protein 7.9 g/dL (6.4-8.9); eGFR For African Americans > 60 (> 60); eGFR For Non-African Americans > 60 (> 60)
== END 2019-04-19 14:45 | disposition home or self-care (01) ==
LOC: 2ANU 11:28 → EMEROOARM 11:28 → SUATTDRO 15:06 → 2ANU 15:51
PROVIDERS: ADMIT Pharmacist; ATTEND Internal Medicine

== ENCOUNTER 2019-05-01 10:35 | Inpatient (IN) ==
[2019-05-01] MEDS ORDERED: 0.9 % Sodium Chloride 1,000 ML IVC ONE (10:40)
[2019-05-01] MEDS ORDERED: diazePAM 10 MG/2 ML SYRINGE IVP ONE ×2 (10:40→10:53)
[2019-05-01] MEDS ORDERED: diazePAM 10 MG/2 ML SYRINGE IVP STA ×2 (11:09→12:40)
[2019-05-01 11:38] LABS: Amphetamine Screen,Urine Negative ng/mL (Cutoff=1000); Barbiturate Screen,Urine Negative ng/mL (Cutoff=200); Benzodiazepines Screen,Urine Positive ng/mL (Cutoff=200); Cannabinoid Screen,Urine Positive ng/mL (Cutoff = 50); Cocaine Screen,Urine Negative ng/mL (Cutoff= 300); Opiate Screen,Urine Negative ng/mL (Cutoff=300); Phencyclidine Screen,Urine Negative ng/mL (Cutoff=25)
[2019-05-01 11:51] LABS: Basophils # 0.1 K/mcL (0.0-0.2); Basophils % 0.6 %; Eosinophils % 0.1 %; Hematocrit 42.1 % (37.5-50.1); Hemoglobin 13.7 g/dL (12.9-16.9); Immature Granulocytes % 0.6 % (0-4); Lymphocytes # 0.5 K/mcL (0.6-4.6); Lymphocytes % 6.2 %; Mean Corpuscular HGB Conc 32.5 g/dL (31.6-35.5); Mean Corpuscular Volume 92.1 fL (83.0-100.0); Mean Platelet Volume 9.5 fL (9.4-12.4); Monocytes # 0.5 K/mcL (0.0-1.3); Monocytes % 5.8 %; Neutrophils # 7.5 K/mcL (1.6-8.9); Platelet Count 335 K/mcL (140-400); Red Blood Count 4.57 M/mcL (4.19-5.50); Red Cell Distribution Width 13.2 % (11.5-14.5); Segmented Neutrophils % 86.7 %; White Blood Count 8.7 K/mcL (4.3-11.1)
[2019-05-01 12:10] LABS: Alanine Aminotransferase 38 Units/L (7-52); Albumin 4.8 g/dL (3.5-5.7); Albumin/Globulin Ratio 1.8 (1.1-2.2); Alkaline Phosphatase 73 Units/L (34-104); Aspartate Amino Transferase 32 Units/L (13-39); BUN/Creatinine Ratio 11 (6-26); Bilirubin,Total 0.4 mg/dL (0.3-1.0); Blood Urea Nitrogen 9 mg/dL (6-20); Calcium 9.5 mg/dL (8.6-10.3); Carbon Dioxide 24 mEq/L (23-29); Chloride 105 mEq/L (98-107); Ethanol < 10 mg/dL (Less than 10); Globulin 2.7 g/dL (2.4-3.5); Glucose 164 mg/dL (70-105); Osmolality,Calculated 292 (280-300); Potassium 4.6 mEq/L (3.5-5.1); Sodium 140 mEq/L (136-145); Total Protein 7.5 g/dL (6.4-8.9); eGFR For African Americans > 60 (> 60); eGFR For Non-African Americans > 60 (> 60)
[2019-05-01] MEDS ORDERED: Dexmedetomidine HCl 400 MCG/100 ML MLS IVC SCH (13:00)
[2019-05-01] MEDS ORDERED: Thiamine (B-1) 100 MG in 0.9 % Sodium Chloride 50 ML IVPB ONE (13:03)
[2019-05-01] MEDS ORDERED: Naloxone 0.4 MG/ML INJ IVP PRN (14:29)
[2019-05-01] MEDS ORDERED: *HR* Promethazine 25 MG/ML VIAL IVP PRN (14:31)
[2019-05-01] MEDS ORDERED: *HR* LORazepam 2 MG/ML VIAL IVP PRN ×3 (14:31)
[2019-05-01] MEDS ORDERED: levETIRAcetam 1,000 MG in 0.9 % Sodium Chloride 100 ML IVPB ONE (14:35)
[2019-05-01] MEDS ORDERED: Acetaminophen 325 MG TABLET PO PRN ×2 (18:10→21:08)
[2019-05-01] MEDS: 0.9 % Sodium Chloride 1,000 ML IVC SCH (18:45)
[2019-05-01] MEDS: Thiamine (B-1) 100 MG, Folic Acid 1 MG, MVI, adult with vitamin K 10 ML in 0.9 % Sodi... IVPB SCH (19:09)
[2019-05-01] MEDS: levETIRAcetam 250 MG TABLET PO SCH (21:36)
[2019-05-02] MEDS: 0.9 % Sodium Chloride 1,000 ML IVC SCH ×4 (02:50→19:25)
[2019-05-02 05:12] LABS: Basophils % 0.5 %; Eosinophils % 0.5 %; Hematocrit 41.3 % (37.5-50.1); Hemoglobin 13.9 g/dL (12.9-16.9); Immature Granulocytes % 0.4 % (0-4); Lymphocytes # 1.7 K/mcL (0.6-4.6); Lymphocytes % 20.9 %; Mean Corpuscular HGB Conc 33.7 g/dL (31.6-35.5); Mean Corpuscular Hemoglobin 30.7 pg (28.0-33.3); Mean Corpuscular Volume 91.2 fL (83.0-100.0); Mean Platelet Volume 9.7 fL (9.4-12.4); Monocytes # 1.4 K/mcL (0.0-1.3); Monocytes % 16.7 %; Platelet Count 289 K/mcL (140-400); Red Blood Count 4.53 M/mcL (4.19-5.50); Red Cell Distribution Width 13.1 % (11.5-14.5); White Blood Count 8.2 K/mcL (4.3-11.1)
[2019-05-02 05:35] LABS: BUN/Creatinine Ratio 9 (6-26); Blood Urea Nitrogen 6 mg/dL (6-20); Calcium 9.5 mg/dL (8.6-10.3); Carbon Dioxide 27 mEq/L (23-29); Chloride 103 mEq/L (98-107); Glucose 102 mg/dL (70-105); Magnesium 2.3 mg/dL (1.6-2.6); Osmolality,Calculated 284 (280-300); Phosphorous 2.6 mg/dL (2.7-4.5); Potassium 3.6 mEq/L (3.5-5.1); Sodium 138 mEq/L (136-145); eGFR For African Americans > 60 (> 60); eGFR For Non-African Americans > 60 (> 60)
[2019-05-02] MEDS: levETIRAcetam 250 MG TABLET PO SCH ×2 (05:37→16:39)
[2019-05-02 10:22] LABS: Folate 17.9 ng/mL (3.0-16.0)
[2019-05-02] MEDS: Thiamine (B-1) 100 MG, Folic Acid 1 MG, MVI, adult with vitamin K 10 ML in 0.9 % Sodi... IVPB SCH (16:40)
[2019-05-02] MEDS: *HR* Heparin 5,000 UNIT/ML VIAL SQ SCH (21:23)
[2019-05-03] MEDS: 0.9 % Sodium Chloride 1,000 ML IVC SCH ×3 (04:00→14:00)
[2019-05-03] MEDS: *HR* Heparin 5,000 UNIT/ML VIAL SQ SCH ×2 (05:26→13:11)
[2019-05-03] MEDS: levETIRAcetam 250 MG TABLET PO SCH (05:26)
[2019-05-03 10:37] VITALS: BP 145/81
[2019-05-03] MEDS ORDERED: hydrOXYzine pamoate 25 MG CAPSULE PO PRN (13:30)
== END 2019-05-03 15:12 | disposition home or self-care (01) | DRG 775 ==
LOC: EMEROOARM 10:35 → 3BNU 14:29 → 2ANU 15:09 → SUATTDRO 16:07 → ICNU 05-02 20:26 → 2ANU 05-02 20:27
PROVIDERS: ADMIT Internal Medicine; ATTEND Internal Medicine

== ENCOUNTER 2019-11-09 21:49 | Observation (INO) ==
[2019-11-09] MEDS ORDERED: Ondansetron 4 MG/2 ML VIAL IVP ONE (21:50)
[2019-11-09] MEDS ORDERED: 0.9 % Sodium Chloride 1,000 ML IVC ONE (21:50)
[2019-11-09] MEDS ORDERED: GI Cocktail 40 ML EACH PO ONE (22:02)
[2019-11-09 22:11] LABS: Basophils # 0.1 K/mcL (0.0-0.2); Basophils % 0.5 %; Eosinophils % 0.2 %; Hematocrit 48.9 % (37.5-50.1); Immature Granulocytes % 0.2 % (0-4); Lymphocytes # 1.9 K/mcL (0.6-4.6); Lymphocytes % 20.4 %; Mean Corpuscular HGB Conc 34.8 g/dL (31.6-35.5); Mean Corpuscular Hemoglobin 30.2 pg (28.0-33.3); Mean Corpuscular Volume 86.9 fL (83.0-100.0); Mean Platelet Volume 10.2 fL (9.4-12.4); Monocytes % 11.2 %; Neutrophils # 6.2 K/mcL (1.6-8.9); Platelet Count 226 K/mcL (140-400); Red Blood Count 5.63 M/mcL (4.19-5.50); Red Cell Distribution Width 14.5 % (11.5-14.5); Segmented Neutrophils % 67.5 %; White Blood Count 9.3 K/mcL (4.3-11.1)
[2019-11-09 22:27] LABS: Alanine Aminotransferase 46 Units/L (7-52); Albumin 5.3 g/dL (3.5-5.7); Albumin/Globulin Ratio 1.6 (1.1-2.2); Alkaline Phosphatase 88 Units/L (34-104); Aspartate Amino Transferase 67 Units/L (13-39); BUN/Creatinine Ratio 11 (6-26); Blood Urea Nitrogen 9 mg/dL (6-20); Calcium 10.6 mg/dL (8.6-10.3); Carbon Dioxide 20 mEq/L (23-29); Chloride 86 mEq/L (98-107); Globulin 3.4 g/dL (2.4-3.5); Glucose 87 mg/dL (70-105); Lipase 23 Units/L (11-82); Osmolality,Calculated 278 (280-300); Sodium 135 mEq/L (136-145); Total Protein 8.7 g/dL (6.4-8.9); eGFR For African Americans > 60 (> 60); eGFR For Non-African Americans > 60 (> 60)
[2019-11-09] MEDS ORDERED: Ibuprofen 400 MG TABLET PO ONE (23:45)
[2019-11-10 00:08] LABS: Bilirubin,Urine Small (Negative); Blood,Urine Negative (Negative); Clarity,Urine Clear (Clear); Color,Urine Yellow (Yellow); Glucose,Urine (UA) Normal (Normal); Ketones,Urine 40 mg/dL (Negative); Leukocyte Esterase,Urine Negative (Negative); Nitrite,Urine Negative (Negative); Protein,Urine 100 mg/dL (Neg-Trace); Specific Gravity,Urine >= 1.030 (1.010-1.025); Urobilinogen,Urine Normal (Normal)
[2019-11-10 00:34] LABS: Bacteria,Urine Moderate per hpf (None-Few); RBC,Urine 0-3 per hpf (0-3); Squamous Epithelial Cell,Urine Few per hpf (None-Few); WBC,Urine 0-3 per hpf (0-3)
[2019-11-10] MEDS ORDERED: *HR* LORazepam 2 MG/ML VIAL IVP ONE (00:34)
[2019-11-10 01:25] LABS: Ethanol 48 mg/dL (Less than 10)
[2019-11-10 01:37] LABS: Amphetamine Screen,Urine Negative ng/mL (Cutoff=1000); Barbiturate Screen,Urine Negative ng/mL (Cutoff=200); Benzodiazepines Screen,Urine Negative ng/mL (Cutoff=200); Cannabinoid Screen,Urine Positive ng/mL (Cutoff = 50); Cocaine Screen,Urine Negative ng/mL (Cutoff= 300); Opiate Screen,Urine Negative ng/mL (Cutoff=300); Phencyclidine Screen,Urine Negative ng/mL (Cutoff=25)
[2019-11-10] MEDS ORDERED: *HR* LORazepam 2 MG/ML VIAL IVP PRN ×3 (01:55→07:27)
[2019-11-10] MEDS ORDERED: Naloxone 0.4 MG/ML INJ IVP PRN (01:56)
[2019-11-10] MEDS ORDERED: *HR* Promethazine 25 MG/ML VIAL IVP PRN (01:56)
[2019-11-10] MEDS: 0.9 % Sodium Chloride 1,000 ML IVC SCH ×2 (02:51→10:54)
[2019-11-10] MEDS ORDERED: Nicotine 21 MG PATCH.TD24 TD SCH (03:06)
[2019-11-10] MEDS ORDERED: Acetaminophen 325 MG TABLET PO PRN (03:06)
[2019-11-10] MEDS ORDERED: Melatonin 3 MG TABLET PO ONE (03:33)
[2019-11-10 04:24] LABS: Hematocrit 43.5 % (37.5-50.1); Mean Corpuscular HGB Conc 33.8 g/dL (31.6-35.5); Mean Corpuscular Hemoglobin 29.5 pg (28.0-33.3); Mean Corpuscular Volume 87.2 fL (83.0-100.0); Mean Platelet Volume 10.6 fL (9.4-12.4); Platelet Count 193 K/mcL (140-400); Red Blood Count 4.99 M/mcL (4.19-5.50); Red Cell Distribution Width 14.7 % (11.5-14.5)
[2019-11-10 04:25] LABS: Hemoglobin 14.7 g/dL (12.9-16.9)
[2019-11-10 04:37] LABS: Alanine Aminotransferase 35 Units/L (7-52); Albumin 4.6 g/dL (3.5-5.7); Albumin/Globulin Ratio 1.8 (1.1-2.2); Alkaline Phosphatase 75 Units/L (34-104); Aspartate Amino Transferase 52 Units/L (13-39); BUN/Creatinine Ratio 13 (6-26); Bilirubin,Total 2.3 mg/dL (0.3-1.0); Blood Urea Nitrogen 10 mg/dL (6-20); Calcium 9.6 mg/dL (8.6-10.3); Carbon Dioxide 24 mEq/L (23-29); Chloride 92 mEq/L (98-107); Chol/HDL Ratio 2.9 (0-4.9); Cholesterol 299 mg/dL (< 200); Globulin 2.6 g/dL (2.4-3.5); Glucose 141 mg/dL (70-105); HDL Cholesterol 103 mg/dL (40-59); LDL Cholesterol,Calculated 141 mg/dL (< 100); Magnesium 2.4 mg/dL (1.6-2.6); Osmolality,Calculated 277 (280-300); Phosphorous 3.2 mg/dL (2.7-4.5); Potassium 4.3 mEq/L (3.5-5.1); Sodium 133 mEq/L (136-145); Total Protein 7.2 g/dL (6.4-8.9); Triglycerides 275 mg/dL (< 150); eGFR For African Americans > 60 (> 60); eGFR For Non-African Americans > 60 (> 60)
[2019-11-10] MEDS ORDERED: *HR* LORazepam 0.5 MG TABLET PO PRN (07:27)
[2019-11-10] MEDS ORDERED: Folic Acid 1 MG TABLET PO SCH (09:00)
[2019-11-10] MEDS ORDERED: levETIRAcetam 250 MG TABLET PO SCH (09:00)
[2019-11-10] MEDS ORDERED: Ondansetron 4 MG/2 ML VIAL IVP PRN (11:03)
[2019-11-10] MEDS ORDERED: *HR* LORazepam Oral Conc 2 MG/ML SL PRN (15:32)
[2019-11-10] MEDS ORDERED: *HR* Promethazine 25 MG/ML VIAL IM ONE (15:37)
[2019-11-10 15:56] VITALS: BP 127/77
[2019-11-10] MEDS ORDERED: Thiamine (B-1) 100 MG, Folic Acid 1 MG, MVI, adult with vitamin K 10 ML in 0.9 % Sodi... IVPB SCH (18:00)
[2019-11-11] MEDS ORDERED: *HR* Enoxaparin 40 MG/0.4 ML SYRINGE SQ SCH (07:00)
== END 2019-11-10 17:25 | disposition left against medical advice (07) ==
LOC: EMEROOARM 21:49 → 2ANU 21:49 → SUATTDRO 11-10 01:40 → 2ANU 11-10 01:48
PROVIDERS: ADMIT Student in an Organized Health Care Education/Training Program; ATTEND Pharmacist

== ENCOUNTER 2020-03-02 14:02 | Observation (INO) ==
[2020-03-02] MEDS ORDERED: 0.9 % Sodium Chloride 1,000 ML IVC ONE (14:22)
[2020-03-02] MEDS ORDERED: levETIRAcetam 1,000 MG in 0.9 % Sodium Chloride 100 ML IVPB ONE (14:39)
[2020-03-02] MEDS ORDERED: diazePAM 10 MG/2 ML SYRINGE IVP STA (14:41)
[2020-03-02] MEDS ORDERED: Thiamine (B-1) 100 MG, Folic Acid 1 MG in 0.9 % Sodium Chloride 50 ML IVPB ONE (15:00)
[2020-03-02 15:05] LABS: Amorphous Sediment,Urine Few per hpf (None-Few); Bacteria,Urine Few per hpf (None-Few); Bilirubin,Urine Negative (Negative); Blood,Urine Moderate (Negative); Clarity,Urine Turbid (Clear); Color,Urine Light-Yellow (Yellow); Glucose,Urine (UA) Normal (Normal); Ketones,Urine 10 mg/dL (Negative); Leukocyte Esterase,Urine Negative (Negative); Nitrite,Urine Negative (Negative); PH,Urine 5.5 pH Units (5.0-8.0); Protein,Urine 100 mg/dL (Neg-Trace); RBC,Urine 0-3 per hpf (0-3); Specific Gravity,Urine 1.013 (1.010-1.025); Urobilinogen,Urine Normal (Normal)
[2020-03-02 15:16] LABS: Amphetamine Screen,Urine Negative ng/mL (Cutoff=1000); Barbiturate Screen,Urine Negative ng/mL (Cutoff=200); Benzodiazepines Screen,Urine Negative ng/mL (Cutoff=200); Cannabinoid Screen,Urine Positive ng/mL (Cutoff = 50); Cocaine Screen,Urine Negative ng/mL (Cutoff= 300); Opiate Screen,Urine Negative ng/mL (Cutoff=300); Phencyclidine Screen,Urine Negative ng/mL (Cutoff=25)
[2020-03-02 15:32] LABS: Basophils # 0.1 K/mcL (0.0-0.2); Basophils % 0.6 %; Eosinophils % 0.4 %; Hematocrit 49.9 % (37.5-50.1); Hemoglobin 15.2 g/dL (12.9-16.9); Immature Granulocytes % 1.4 % (0-4); Lymphocytes # 1.7 K/mcL (0.6-4.6); Lymphocytes % 14.9 %; Mean Corpuscular HGB Conc 30.5 g/dL (31.6-35.5); Mean Corpuscular Hemoglobin 30.9 pg (28.0-33.3); Mean Corpuscular Volume 101.4 fL (83.0-100.0); Mean Platelet Volume 10.1 fL (9.4-12.4); Monocytes # 0.9 K/mcL (0.0-1.3); Monocytes % 7.7 %; Neutrophils # 8.4 K/mcL (1.6-8.9); Platelet Count 246 K/mcL (140-400); Red Blood Count 4.92 M/mcL (4.19-5.50); Red Cell Distribution Width 13.4 % (11.5-14.5); White Blood Count 11.2 K/mcL (4.3-11.1)
[2020-03-02 15:52] LABS: Acetaminophen < 10 mcg/mL (10-20); Alanine Aminotransferase 33 Units/L (7-52); Albumin 5.1 g/dL (3.5-5.7); Albumin/Globulin Ratio 1.5 (1.1-2.2); Alkaline Phosphatase 95 Units/L (34-104); Aspartate Amino Transferase 55 Units/L (13-39); BUN/Creatinine Ratio 7 (6-26); Bilirubin,Total 0.5 mg/dL (0.3-1.0); Blood Urea Nitrogen 7 mg/dL (6-20); Calcium 9.9 mg/dL (8.6-10.3); Carbon Dioxide 6 mEq/L (23-29); Chloride 100 mEq/L (98-107); Ethanol < 10 mg/dL (Less than 10); Globulin 3.3 g/dL (2.4-3.5); Glucose 183 mg/dL (70-105); Osmolality,Calculated 293 (280-300); Potassium 4.6 mEq/L (3.5-5.1); Salicylate < 2.5 mg/dL (15.0-30.0); Sodium 140 mEq/L (136-145); Total Protein 8.4 g/dL (6.4-8.9); eGFR For African Americans > 60 (> 60); eGFR For Non-African Americans > 60 (> 60)
[2020-03-02] MEDS ORDERED: Ondansetron 4 MG/2 ML VIAL IVP ONE (16:32)
[2020-03-02] MEDS ORDERED: diazePAM 10 MG/2 ML SYRINGE IVP ONE (17:29)
[2020-03-02 17:30] LABS: VBG HCO3 21 mEq/L (21-27); VBG PCO2 33 mmHg (41-51); VBG PH 7.42 pH Units (7.32-7.42); VBG PO2 221 mmHg (25-50)
[2020-03-02 17:49] LABS: BUN/Creatinine Ratio 8 (6-26); Blood Urea Nitrogen 6 mg/dL (6-20); Calcium 9.6 mg/dL (8.6-10.3); Carbon Dioxide 19 mEq/L (23-29); Chloride 103 mEq/L (98-107); Glucose 126 mg/dL (70-105); Osmolality,Calculated 283 (280-300); Potassium 4.5 mEq/L (3.5-5.1); Sodium 137 mEq/L (136-145); eGFR For African Americans > 60 (> 60); eGFR For Non-African Americans > 60 (> 60)
[2020-03-02] MEDS ORDERED: Naloxone 0.4 MG/ML INJ IVP PRN (18:13)
[2020-03-02] MEDS ORDERED: *HR* LORazepam 2 MG/ML VIAL IVP PRN (18:18)
[2020-03-02 18:30] LABS: Adenovirus Not Detected (Not Detect); Bordetella Pertussis Not Detected (Not Detect); Chlamydophila pneumoniae Not Detected (Not Detect); Coronavirus 229E Not Detected (Not Detect); Coronavirus HKU1 Not Detected (Not Detect); Coronavirus NL63 Not Detected (Not Detect); Coronavirus OC43 Not Detected (Not Detect); Human Metapneumovirus Not Detected (Not Detect); Human Rhinovirus/Enterovirus Not Detected (Not Detect); Influenza A Subtype 2009 H1 Not Detected (Not Detect); Influenza B Not Detected (Not Detect); Mycoplasma pneumoniae Not Detected (Not Detect); Parainfluenza Virus 1 Not Detected (Not Detect); Parainfluenza Virus 2 Not Detected (Not Detect); Parainfluenza Virus 3 Not Detected (Not Detect); Parainfluenza Virus 4 Not Detected (Not Detect); Respiratory Syncytial Virus Not Detected (Not Detect)
[2020-03-02] MEDS: *HR* LORazepam 2 MG/ML VIAL IVP PRN (18:51)
[2020-03-03] MEDS: *HR* LORazepam 2 MG/ML VIAL IVP PRN ×3 (03:50→07:50)
[2020-03-03 05:23] LABS: Alanine Aminotransferase 25 Units/L (7-52); Albumin 4.9 g/dL (3.5-5.7); Albumin/Globulin Ratio 1.6 (1.1-2.2); Alkaline Phosphatase 74 Units/L (34-104); Aspartate Amino Transferase 39 Units/L (13-39); BUN/Creatinine Ratio 8 (6-26); Bilirubin,Total 1.2 mg/dL (0.3-1.0); Blood Urea Nitrogen 6 mg/dL (6-20); Carbon Dioxide 23 mEq/L (23-29); Chloride 99 mEq/L (98-107); Glucose 129 mg/dL (70-105); Osmolality,Calculated 279 (280-300); Potassium 3.6 mEq/L (3.5-5.1); Sodium 135 mEq/L (136-145); Total Protein 7.9 g/dL (6.4-8.9); eGFR For African Americans > 60 (> 60); eGFR For Non-African Americans > 60 (> 60)
[2020-03-03 05:47] LABS: Basophils % 0.3 %; Hematocrit 44.3 % (37.5-50.1); Hemoglobin 15.2 g/dL (12.9-16.9); Immature Granulocytes % 0.4 % (0-4); Lymphocytes # 0.8 K/mcL (0.6-4.6); Lymphocytes % 5.8 %; Mean Corpuscular HGB Conc 34.3 g/dL (31.6-35.5); Mean Corpuscular Hemoglobin 30.9 pg (28.0-33.3); Monocytes # 1.8 K/mcL (0.0-1.3); Monocytes % 12.8 %; Platelet Count 214 K/mcL (140-400); Red Blood Count 4.92 M/mcL (4.19-5.50); Red Cell Distribution Width 12.9 % (11.5-14.5); Segmented Neutrophils % 80.7 %; White Blood Count 13.7 K/mcL (4.3-11.1)
[2020-03-03] MEDS: levETIRAcetam 250 MG TABLET PO SCH ×2 (05:51→16:51)
[2020-03-03] MEDS ORDERED: Cyanocobalamin (B-12) 1,000 MCG TABLET PO SCH (13:15)
[2020-03-03] MEDS: Thiamine (B-1) 100 MG TABLET PO SCH (13:59)
[2020-03-03] MEDS: Multivit/Ca/Min/Fe/FA 1 TAB TABLET PO SCH (13:59)
[2020-03-03] MEDS: Folic Acid 1 MG TABLET PO SCH (14:00)
[2020-03-03] MEDS: traZODone 50 MG TABLET PO PRN (22:26)
[2020-03-04 06:33] LABS: Basophils # 0.1 K/mcL (0.0-0.2); Basophils % 0.5 %; Eosinophils % 0.4 %; Hematocrit 46.6 % (37.5-50.1); Hemoglobin 15.2 g/dL (12.9-16.9); Immature Granulocytes % 0.4 % (0-4); Lymphocytes # 2.2 K/mcL (0.6-4.6); Lymphocytes % 23.2 %; Mean Corpuscular HGB Conc 32.6 g/dL (31.6-35.5); Mean Corpuscular Hemoglobin 29.9 pg (28.0-33.3); Mean Corpuscular Volume 91.7 fL (83.0-100.0); Mean Platelet Volume 10.4 fL (9.4-12.4); Monocytes # 1.4 K/mcL (0.0-1.3); Monocytes % 14.2 %; Neutrophils # 5.8 K/mcL (1.6-8.9); Platelet Count 196 K/mcL (140-400); Red Blood Count 5.08 M/mcL (4.19-5.50); Red Cell Distribution Width 12.8 % (11.5-14.5); Segmented Neutrophils % 61.3 %; White Blood Count 9.5 K/mcL (4.3-11.1)
[2020-03-04] MEDS: levETIRAcetam 250 MG TABLET PO SCH ×2 (06:40→17:31)
[2020-03-04 06:59] LABS: BUN/Creatinine Ratio 13 (6-26); Blood Urea Nitrogen 9 mg/dL (6-20); Calcium 10.4 mg/dL (8.6-10.3); Carbon Dioxide 25 mEq/L (23-29); Chloride 100 mEq/L (98-107); Glucose 115 mg/dL (70-105); Osmolality,Calculated 284 (280-300); Potassium 3.8 mEq/L (3.5-5.1); Sodium 137 mEq/L (136-145); eGFR For African Americans > 60 (> 60); eGFR For Non-African Americans > 60 (> 60)
[2020-03-04] MEDS: Thiamine (B-1) 100 MG TABLET PO SCH (09:23)
[2020-03-04] MEDS: Multivit/Ca/Min/Fe/FA 1 TAB TABLET PO SCH (09:23)
[2020-03-04] MEDS: Folic Acid 1 MG TABLET PO SCH (09:23)
[2020-03-04] MEDS: traZODone 50 MG TABLET PO PRN (21:49)
[2020-03-04] MEDS: *HR* LORazepam 2 MG/ML VIAL IVP PRN (22:19)
[2020-03-05] MEDS: levETIRAcetam 250 MG TABLET PO SCH (06:24)
[2020-03-05 07:44] VITALS: BP 109/78
[2020-03-05] MEDS: Folic Acid 1 MG TABLET PO SCH (08:40)
[2020-03-05] MEDS: Thiamine (B-1) 100 MG TABLET PO SCH (08:40)
[2020-03-05] MEDS: Multivit/Ca/Min/Fe/FA 1 TAB TABLET PO SCH (08:40)
== END 2020-03-05 09:55 | disposition home or self-care (01) ==
LOC: EMEROOARM 14:02 → 2ANU 14:02
PROVIDERS: ADMIT Internal Medicine; ATTEND Internal Medicine

== ENCOUNTER 2020-03-05 23:03 | Observation (INO) ==
[2020-03-05 23:49] LABS: Basophils % 0.4 %; Eosinophils # 0.1 K/mcL (0.0-0.6); Eosinophils % 1.1 %; Hematocrit 43.7 % (37.5-50.1); Hemoglobin 14.4 g/dL (12.9-16.9); Immature Granulocytes % 0.2 % (0-4); Lymphocytes # 2.4 K/mcL (0.6-4.6); Lymphocytes % 24.5 %; Mean Platelet Volume 10.2 fL (9.4-12.4); Monocytes # 1.2 K/mcL (0.0-1.3); Monocytes % 12.3 %; Platelet Count 192 K/mcL (140-400); Red Cell Distribution Width 12.2 % (11.5-14.5); Segmented Neutrophils % 61.5 %; White Blood Count 9.8 K/mcL (4.3-11.1)
[2020-03-05] MEDS ORDERED: 0.9 % Sodium Chloride 1,000 ML IV ONE (23:50)
[2020-03-06 00:08] LABS: Alanine Aminotransferase 31 Units/L (7-52); Albumin 4.7 g/dL (3.5-5.7); Albumin/Globulin Ratio 1.6 (1.1-2.2); Alkaline Phosphatase 67 Units/L (34-104); Aspartate Amino Transferase 50 Units/L (13-39); BUN/Creatinine Ratio 17 (6-26); Bilirubin,Total 1.3 mg/dL (0.3-1.0); Blood Urea Nitrogen 13 mg/dL (6-20); Calcium 9.9 mg/dL (8.6-10.3); Carbon Dioxide 26 mEq/L (23-29); Chloride 98 mEq/L (98-107); Glucose 98 mg/dL (70-105); Osmolality,Calculated 282 (280-300); Potassium 3.3 mEq/L (3.5-5.1); Sodium 136 mEq/L (136-145); Total Protein 7.7 g/dL (6.4-8.9); eGFR For African Americans > 60 (> 60); eGFR For Non-African Americans > 60 (> 60)
[2020-03-06 00:21] LABS: Bilirubin,Urine Negative (Negative); Blood,Urine Negative (Negative); Clarity,Urine Clear (Clear); Color,Urine Yellow (Yellow); Glucose,Urine (UA) Normal (Normal); Ketones,Urine Negative (Negative); Leukocyte Esterase,Urine Negative (Negative); Nitrite,Urine Negative (Negative); Protein,Urine Trace mg/dL (Neg-Trace)
[2020-03-06 00:34] LABS: Amphetamine Screen,Urine Negative ng/mL (Cutoff=1000); Barbiturate Screen,Urine Negative ng/mL (Cutoff=200); Benzodiazepines Screen,Urine Positive ng/mL (Cutoff=200); Cannabinoid Screen,Urine Positive ng/mL (Cutoff = 50); Cocaine Screen,Urine Negative ng/mL (Cutoff= 300); Opiate Screen,Urine Negative ng/mL (Cutoff=300); Phencyclidine Screen,Urine Negative ng/mL (Cutoff=25)
[2020-03-06] MEDS ORDERED: levETIRAcetam 1,000 MG in 0.9 % Sodium Chloride 100 ML IVPB ONE (01:31)
[2020-03-06] MEDS ORDERED: Acetaminophen 325 MG TABLET PO PRN (03:01)
[2020-03-06] MEDS ORDERED: Ondansetron ODT 4 MG TAB.RAPDIS SL PRN (03:01)
[2020-03-06] MEDS ORDERED: Naloxone 0.4 MG/ML INJ IVP PRN (03:01)
[2020-03-06] MEDS ORDERED: *HR* LORazepam 1 MG TABLET PO PRN (03:07)
[2020-03-06] MEDS ORDERED: *HR* Promethazine 25 MG/ML VIAL IM PRN (03:20)
[2020-03-06] MEDS: 0.9 % Sodium Chloride 1,000 ML IVC SCH ×2 (03:41→15:52)
[2020-03-06] MEDS: *HR* LORazepam 2 MG/ML VIAL IVP PRN ×2 (03:42→20:51)
[2020-03-06 05:31] LABS: Hematocrit 42.1 % (37.5-50.1); Hemoglobin 13.6 g/dL (12.9-16.9); Mean Corpuscular HGB Conc 32.3 g/dL (31.6-35.5); Mean Corpuscular Hemoglobin 30.9 pg (28.0-33.3); Mean Corpuscular Volume 95.7 fL (83.0-100.0); Mean Platelet Volume 11.3 fL (9.4-12.4); Platelet Count 147 K/mcL (140-400); Red Cell Distribution Width 12.3 % (11.5-14.5); White Blood Count 7.8 K/mcL (4.3-11.1)
[2020-03-06 05:50] LABS: Ethanol < 10 mg/dL (Less than 10); Lipase 64 Units/L (11-82)
[2020-03-06 05:52] LABS: BUN/Creatinine Ratio 17 (6-26); Blood Urea Nitrogen 11 mg/dL (6-20); Calcium 9.3 mg/dL (8.6-10.3); Carbon Dioxide 23 mEq/L (23-29); Chloride 103 mEq/L (98-107); Glucose 105 mg/dL (70-105); Osmolality,Calculated 284 (280-300); Phosphorous 3.4 mg/dL (2.7-4.5); Potassium 3.4 mEq/L (3.5-5.1); Sodium 137 mEq/L (136-145); eGFR For African Americans > 60 (> 60); eGFR For Non-African Americans > 60 (> 60)
[2020-03-06 06:02] LABS: INR 0.9; Prothrombin Time 10.7 Seconds (9.4-12.1)
[2020-03-06] MEDS: Thiamine (B-1) 100 MG TABLET PO SCH (08:37)
[2020-03-06] MEDS: Vitamin B Complex/Vit C/Vit E 1 EACH TABLET PO SCH (08:37)
[2020-03-06] MEDS: Folic Acid 1 MG TABLET PO SCH (08:37)
[2020-03-06] MEDS: levETIRAcetam 250 MG TABLET PO SCH ×2 (08:37→20:51)
[2020-03-06] MEDS ORDERED: Sulfamethoxazole/Trimeth DS 1 EACH TABLET PO SCH (09:00)
[2020-03-06] MEDS ORDERED: traZODone 50 MG TABLET PO PRN (10:32)
[2020-03-06] MEDS ORDERED: Valproic Acid INJ 1,000 MG in 0.9 % Sodium Chloride 100 ML IVPB ONE (11:15)
[2020-03-06] MEDS ORDERED: Gadolinium Contrast Agent (WT Based) IV PRN (17:21)
[2020-03-07] MEDS: *HR* LORazepam 2 MG/ML VIAL IVP PRN ×3 (04:13→14:44)
[2020-03-07 05:09] LABS: Basophils # 0.1 K/mcL (0.0-0.2); Basophils % 1.1 %; Eosinophils # 0.1 K/mcL (0.0-0.6); Eosinophils % 2.1 %; Hematocrit 47.8 % (37.5-50.1); Hemoglobin 14.7 g/dL (12.9-16.9); Immature Granulocytes % 0.6 % (0-4); Lymphocytes # 2.6 K/mcL (0.6-4.6); Lymphocytes % 38.3 %; Mean Corpuscular HGB Conc 30.8 g/dL (31.6-35.5); Mean Corpuscular Volume 100.8 fL (83.0-100.0); Monocytes # 0.9 K/mcL (0.0-1.3); Monocytes % 13.2 %; Platelet Count 104 K/mcL (140-400); Red Blood Count 4.74 M/mcL (4.19-5.50); Red Cell Distribution Width 12.4 % (11.5-14.5); Segmented Neutrophils % 44.7 %; White Blood Count 6.7 K/mcL (4.3-11.1)
[2020-03-07] MEDS: levETIRAcetam 250 MG TABLET PO SCH (08:22)
[2020-03-07] MEDS: Folic Acid 1 MG TABLET PO SCH (08:22)
[2020-03-07] MEDS: Vitamin B Complex/Vit C/Vit E 1 EACH TABLET PO SCH (08:22)
[2020-03-07] MEDS: Thiamine (B-1) 100 MG TABLET PO SCH (08:22)
[2020-03-07 09:03] LABS: Alanine Aminotransferase 42 Units/L (7-52); Albumin 4.4 g/dL (3.5-5.7); Albumin/Globulin Ratio 1.5 (1.1-2.2); Alkaline Phosphatase 59 Units/L (34-104); Aspartate Amino Transferase 51 Units/L (13-39); BUN/Creatinine Ratio 10 (6-26); Bilirubin,Direct 0.2 mg/dL (0.0-0.2); Bilirubin,Indirect 0.7 mg/dL (0.0-1.0); Bilirubin,Total 0.9 mg/dL (0.3-1.0); Blood Urea Nitrogen 6 mg/dL (6-20); Calcium 9.7 mg/dL (8.6-10.3); Carbon Dioxide 24 mEq/L (23-29); Chloride 107 mEq/L (98-107); Globulin 2.9 g/dL (2.4-3.5); Glucose 99 mg/dL (70-105); Osmolality,Calculated 286 (280-300); Potassium 3.8 mEq/L (3.5-5.1); Sodium 139 mEq/L (136-145); Total Protein 7.3 g/dL (6.4-8.9); eGFR For African Americans > 60 (> 60); eGFR For Non-African Americans > 60 (> 60)
[2020-03-07] MEDS ORDERED: Valproic Acid INJ 500 MG in 0.9 % Sodium Chloride 100 ML IVPB ONE (15:30)
[2020-03-07 15:53] VITALS: BP 127/91
[2020-03-07] MEDS ORDERED: Valproic Acid INJ 500 MG in 0.9 % Sodium Chloride 100 ML IVPB SCH (16:00)
[2020-03-07] MEDS ORDERED: Divalproex (24 HR) 500 MG TABLET PO SCH (21:00)
== END 2020-03-07 16:32 | disposition home or self-care (01) ==
LOC: EMEROOARM 23:03 → CDU 23:03 → SUATTDRO 03-06 01:58 → CDU 03-06 02:39
PROVIDERS: ADMIT Family Medicine; ATTEND Internal Medicine

== ENCOUNTER 2020-04-26 11:11 | Observation (INO) ==
[2020-04-26] MEDS ORDERED: *HR* LORazepam 2 MG/ML VIAL IVP ONE (13:20)
[2020-04-26] MEDS ORDERED: 0.9 % Sodium Chloride 1,000 ML IVC ONE (13:20)
[2020-04-26 13:57] LABS: Hematocrit 45.6 % (37.5-50.1); Hemoglobin 15.2 g/dL (12.9-16.9); Mean Corpuscular HGB Conc 33.3 g/dL (31.6-35.5); Mean Corpuscular Hemoglobin 30.7 pg (28.0-33.3); Mean Corpuscular Volume 92.1 fL (83.0-100.0); Mean Platelet Volume 9.7 fL (9.4-12.4); Platelet Count 273 K/mcL (140-400); Red Blood Count 4.95 M/mcL (4.19-5.50); Red Cell Distribution Width 13.7 % (11.5-14.5); White Blood Count 6.7 K/mcL (4.3-11.1)
[2020-04-26 14:14] LABS: BUN/Creatinine Ratio 11 (6-26); Blood Urea Nitrogen 7 mg/dL (6-20); Calcium 10.1 mg/dL (8.6-10.3); Carbon Dioxide 25 mEq/L (23-29); Chloride 100 mEq/L (98-107); Ethanol < 10 mg/dL (Less than 10); Glucose 113 mg/dL (70-105); Osmolality,Calculated 281 (280-300); Potassium 4.1 mEq/L (3.5-5.1); Sodium 136 mEq/L (136-145); eGFR For African Americans > 60 (> 60); eGFR For Non-African Americans > 60 (> 60)
[2020-04-26 15:03] LABS: Bilirubin,Urine Negative (Negative); Blood,Urine Negative (Negative); Clarity,Urine Clear (Clear); Color,Urine Light-Yellow (Yellow); Glucose,Urine (UA) Normal (Normal); Ketones,Urine Negative (Negative); Leukocyte Esterase,Urine Negative (Negative); Nitrite,Urine Negative (Negative); Protein,Urine Trace mg/dL (Neg-Trace); Specific Gravity,Urine 1.018 (1.010-1.025); Urobilinogen,Urine Normal (Normal)
[2020-04-26] MEDS: Valproic Acid 250 MG CAPSULE PO STA ×2 (15:03→16:03)
[2020-04-26] MEDS ORDERED: levETIRAcetam 1,000 MG in 0.9 % Sodium Chloride 100 ML IVPB ONE (15:09)
[2020-04-26] MEDS ORDERED: Naloxone 0.4 MG/ML INJ IVP PRN (15:31)
[2020-04-26] MEDS ORDERED: traZODone 50 MG TABLET PO PRN (15:35)
[2020-04-26 15:53] LABS: Amphetamine Screen,Urine Negative ng/mL (Cutoff=1000); Barbiturate Screen,Urine Negative ng/mL (Cutoff=200); Benzodiazepines Screen,Urine Negative ng/mL (Cutoff=200); Cannabinoid Screen,Urine Positive ng/mL (Cutoff = 50); Cocaine Screen,Urine Negative ng/mL (Cutoff= 300); Opiate Screen,Urine Negative ng/mL (Cutoff=300); Phencyclidine Screen,Urine Negative ng/mL (Cutoff=25)
[2020-04-26] MEDS ORDERED: Acetaminophen IV 1,000 MG/100 ML BAG IVPB ONE (16:10)
[2020-04-26] MEDS ORDERED: *HR* LORazepam 2 MG/ML VIAL IVP PRN ×2 (16:22)
[2020-04-26 16:32] LABS: Troponin I < 0.03 ng/mL (< 0.04)
[2020-04-26 16:38] LABS: Thyroid Stimulating Hormone 0.843 mcIU/mL (0.340-5.600)
[2020-04-26 16:46] LABS: Bilirubin,Urine Negative (Negative); Blood,Urine Negative (Negative); Clarity,Urine Clear (Clear); Color,Urine Light-Yellow (Yellow); Glucose,Urine (UA) Normal (Normal); Ketones,Urine Negative (Negative); Leukocyte Esterase,Urine Negative (Negative); Nitrite,Urine Negative (Negative); Protein,Urine 30 mg/dL (Neg-Trace); RBC,Urine 0-3 per hpf (0-3); Specific Gravity,Urine 1.018 (1.010-1.025); Squamous Epithelial Cell,Urine Few per hpf (None-Few); Urobilinogen,Urine Normal (Normal); WBC,Urine 0-3 per hpf (0-3)
[2020-04-26 16:48] LABS: Amylase 126 Units/L (29-103); Lipase 63 Units/L (11-82)
[2020-04-26 19:39] LABS: Folate > 22.3 ng/mL (3.0-16.0); Vitamin B12 257 pg/mL (250-1100)
[2020-04-26] MEDS: *HR* LORazepam 2 MG/ML VIAL IVP PRN (20:26)
[2020-04-26] MEDS ORDERED: Divalproex (24 HR) 500 MG TABLET PO SCH (21:00)
[2020-04-26] MEDS ORDERED: Melatonin 3 MG TABLET PO SCH (22:30)
[2020-04-27] MEDS: *HR* LORazepam 2 MG/ML VIAL IVP PRN ×3 (00:27→12:19)
[2020-04-27 06:29] LABS: Hemoglobin 16.1 g/dL (12.9-16.9); Mean Corpuscular HGB Conc 33.5 g/dL (31.6-35.5); Mean Corpuscular Hemoglobin 30.4 pg (28.0-33.3); Mean Corpuscular Volume 90.6 fL (83.0-100.0); Mean Platelet Volume 10.3 fL (9.4-12.4); Platelet Count 283 K/mcL (140-400); Red Cell Distribution Width 13.4 % (11.5-14.5); White Blood Count 8.5 K/mcL (4.3-11.1)
[2020-04-27 06:49] LABS: BUN/Creatinine Ratio 7 (6-26); Blood Urea Nitrogen 5 mg/dL (6-20); Calcium 10.6 mg/dL (8.6-10.3); Carbon Dioxide 24 mEq/L (23-29); Chloride 100 mEq/L (98-107); Glucose 101 mg/dL (70-105); Magnesium 2.2 mg/dL (1.6-2.6); Osmolality,Calculated 289 (280-300); Potassium 3.2 mEq/L (3.5-5.1); Sodium 141 mEq/L (136-145); eGFR For African Americans > 60 (> 60); eGFR For Non-African Americans > 60 (> 60)
[2020-04-27] MEDS ORDERED: Thiamine (B-1) 100 MG TABLET PO SCH (09:00)
[2020-04-27] MEDS ORDERED: levETIRAcetam 250 MG TABLET PO SCH (09:00)
[2020-04-27] MEDS ORDERED: Folic Acid 1 MG TABLET PO SCH (09:00)
[2020-04-27 12:11] VITALS: BP 131/82
[2020-04-27] MEDS ORDERED: Nicotine 21 MG PATCH.TD24 TD SCH (14:00)
[2020-04-27 14:42] LABS: VBG Ionized Calcium 1.13 mmol/L (1.15-1.35)
== END 2020-04-27 16:43 | disposition home or self-care (01) ==
LOC: 3BNU 11:11 → EMEROOARM 11:11 → SUATTDRO 14:49 → 3BNU 16:05
PROVIDERS: ADMIT Internal Medicine; ATTEND Student in an Organized Health Care Education/Training Program

== ENCOUNTER 2020-06-24 19:29 | Inpatient (IN) ==
[2020-06-24] MEDS ORDERED: *HR* LORazepam 2 MG/ML VIAL ONE (19:35)
[2020-06-24] MEDS ORDERED: levETIRAcetam 1,000 MG in 0.9 % Sodium Chloride 100 ML IVPB ONE (19:40)
[2020-06-24] MEDS ORDERED: 0.9 % Sodium Chloride 1,000 ML IVC ONE ×2 (19:40→21:10)
[2020-06-24] MEDS ORDERED: *HR* LORazepam 2 MG/ML VIAL IVP ONE (19:57)
[2020-06-24 20:11] LABS: Basophils # 0.1 K/mcL (0.0-0.2); Basophils % 0.6 %; Hematocrit 47.6 % (37.5-50.1); Hemoglobin 15.8 g/dL (12.9-16.9); Immature Granulocytes % 0.3 % (0-4); Lymphocytes % 8.3 %; Mean Corpuscular HGB Conc 33.2 g/dL (31.6-35.5); Mean Corpuscular Hemoglobin 30.2 pg (28.0-33.3); Mean Platelet Volume 10.8 fL (9.4-12.4); Monocytes # 1.1 K/mcL (0.0-1.3); Monocytes % 9.2 %; Neutrophils # 9.8 K/mcL (1.6-8.9); Platelet Count 165 K/mcL (140-400); Red Blood Count 5.23 M/mcL (4.19-5.50); Red Cell Distribution Width 14.1 % (11.5-14.5); Segmented Neutrophils % 81.6 %
[2020-06-24] MEDS: Thiamine (B-1) 100 MG, Folic Acid 1 MG, MVI, adult with vitamin K 10 ML in 0.9 % Sodi... IVPB SCH (20:11)
[2020-06-24 20:18] LABS: Alanine Aminotransferase 50 Units/L (7-52); Albumin 5.2 g/dL (3.5-5.7); Albumin/Globulin Ratio 1.4 (1.1-2.2); Alkaline Phosphatase 104 Units/L (34-104); Aspartate Amino Transferase 79 Units/L (13-39); BUN/Creatinine Ratio 7 (6-26); Bilirubin,Direct 0.3 mg/dL (0.0-0.2); Bilirubin,Indirect 1.5 mg/dL (0.0-1.0); Bilirubin,Total 1.8 mg/dL (0.3-1.0); Blood Urea Nitrogen 8 mg/dL (6-20); Calcium 10.7 mg/dL (8.6-10.3); Carbon Dioxide 12 mEq/L (23-29); Chloride 97 mEq/L (98-107); Ethanol < 10 mg/dL (Less than 10); Globulin 3.7 g/dL (2.4-3.5); Glucose 205 mg/dL (70-105); Osmolality,Calculated 292 (280-300); Potassium 4.3 mEq/L (3.5-5.1); Prothrombin Time 11.3 Seconds (9.4-12.1); Sodium 139 mEq/L (136-145); Total Protein 8.9 g/dL (6.4-8.9); eGFR For African Americans > 60 (> 60); eGFR For Non-African Americans > 60 (> 60)
[2020-06-24 20:21] LABS: Activated Partial Thrombo Time 24.5 Seconds (26.0-36.0)
[2020-06-24 20:33] LABS: Troponin I < 0.03 ng/mL (< 0.04)
[2020-06-24] MEDS ORDERED: diazePAM 10 MG/2 ML SYRINGE IVP STA (21:14)
[2020-06-24] MEDS ORDERED: levoFLOXacin 750 MG/150 ML 750 MG/150 ML BAG IVPB ONE (22:51)
[2020-06-24 23:17] LABS: Amphetamine Screen,Urine Negative ng/mL (Cutoff=1000); Barbiturate Screen,Urine Negative ng/mL (Cutoff=200); Benzodiazepines Screen,Urine Negative ng/mL (Cutoff=200); Cannabinoid Screen,Urine Positive ng/mL (Cutoff = 50); Cocaine Screen,Urine Negative ng/mL (Cutoff= 300); Opiate Screen,Urine Negative ng/mL (Cutoff=300); Phencyclidine Screen,Urine Negative ng/mL (Cutoff=25)
[2020-06-25] MEDS ORDERED: Naloxone 0.4 MG/ML INJ IVP PRN (06:01)
[2020-06-25] MEDS ORDERED: Acetaminophen 325 MG TABLET PO PRN (06:01)
[2020-06-25] MEDS ORDERED: Ondansetron 4 MG/2 ML VIAL IVP PRN (06:01)
[2020-06-25] MEDS ORDERED: *HR* Dextrose 50 % in Water (Vial) 50 ML VIAL IVP PRN (06:05)
[2020-06-25] MEDS ORDERED: Ipratropium/Albuterol Neb 3 ML IH PRN (06:05)
[2020-06-25] MEDS ORDERED: D5% in Water 1,000 ML IVC PRN (06:05)
[2020-06-25] MEDS ORDERED: Dextrose Gel 15 GM/37.5 ML TUBE PO PRN ×2 (06:05)
[2020-06-25] MEDS ORDERED: *HR* LORazepam 2 MG/ML VIAL IVP PRN (06:09)
[2020-06-25 06:59] LABS: Hematocrit 39.1 % (37.5-50.1); Mean Platelet Volume 11.6 fL (9.4-12.4)
[2020-06-25 07:01] LABS: Basophils % 0.6 %; Hemoglobin 13.3 g/dL (12.9-16.9); Immature Granulocytes % 0.3 % (0-4); Immature Platelets 7.7 % (1.1-6.1); Lymphocytes # 0.9 K/mcL (0.6-4.6); Lymphocytes % 12.9 %; Mean Corpuscular Hemoglobin 30.4 pg (28.0-33.3); Mean Corpuscular Volume 89.3 fL (83.0-100.0); Monocytes # 1.1 K/mcL (0.0-1.3); Monocytes % 16.1 %; Neutrophils # 4.8 K/mcL (1.6-8.9); Platelet Count 114 K/mcL (140-400); Red Blood Count 4.38 M/mcL (4.19-5.50); Red Cell Distribution Width 13.6 % (11.5-14.5); Segmented Neutrophils % 70.1 %; White Blood Count 6.9 K/mcL (4.3-11.1)
[2020-06-25 07:08] LABS: Alanine Aminotransferase 34 Units/L (7-52); Albumin 4.4 g/dL (3.5-5.7); Albumin/Globulin Ratio 1.7 (1.1-2.2); Alkaline Phosphatase 76 Units/L (34-104); Aspartate Amino Transferase 56 Units/L (13-39); BUN/Creatinine Ratio 13 (6-26); Bilirubin,Total 2.1 mg/dL (0.3-1.0); Blood Urea Nitrogen 9 mg/dL (6-20); Calcium 9.5 mg/dL (8.6-10.3); Carbon Dioxide 21 mEq/L (23-29); Chloride 104 mEq/L (98-107); Cholesterol 305 mg/dL (< 200); Globulin 2.6 g/dL (2.4-3.5); Glucose 114 mg/dL (70-105); HDL Cholesterol 149 mg/dL (40-59); LDL Cholesterol,Calculated 136 mg/dL (< 100); Magnesium 2.1 mg/dL (1.6-2.6); Osmolality,Calculated 288 (280-300); Potassium 3.9 mEq/L (3.5-5.1); Sodium 139 mEq/L (136-145); Triglycerides 101 mg/dL (< 150); eGFR For African Americans > 60 (> 60); eGFR For Non-African Americans > 60 (> 60)
[2020-06-25] MEDS: Insulin LISPRO 300 UNITS/3 ML VIAL SUBQ SCH ×4 (09:03→21:44)
[2020-06-25] MEDS ORDERED: Lactulose Oral Soln 20 GM/30 ML UDC PO ONE (09:06)
[2020-06-25] MEDS: *HR* LORazepam 2 MG/ML VIAL IVP PRN ×4 (10:01→23:42)
[2020-06-25] MEDS: levoFLOXacin 750 MG/150 ML 750 MG/150 ML BAG IVPB SCH (10:16)
[2020-06-25] MEDS: 0.9 % Sodium Chloride 1,000 ML IVC SCH ×2 (12:42→21:35)
[2020-06-25] MEDS: Thiamine (B-1) 100 MG, Folic Acid 1 MG, MVI, adult with vitamin K 10 ML in 0.9 % Sodi... IVPB SCH (18:48)
[2020-06-25] MEDS: Lactulose Oral Soln 20 GM/30 ML UDC PO SCH (19:58)
[2020-06-25 23:07] LABS: Bilirubin,Urine Negative (Negative); Blood,Urine Negative (Negative); Clarity,Urine Clear (Clear); Color,Urine Light-Orange (Yellow); Glucose,Urine (UA) Normal (Normal); Ketones,Urine 10 mg/dL (Negative); Leukocyte Esterase,Urine Negative (Negative); Mucus,Urine Few per lpf (None-Few); Nitrite,Urine Negative (Negative); Protein,Urine 30 mg/dL (Neg-Trace); RBC,Urine 0-3 per hpf (0-3); Specific Gravity,Urine 1.022 (1.010-1.025); Squamous Epithelial Cell,Urine Few per hpf (None-Few); Urobilinogen,Urine Normal (Normal); WBC,Urine 0-3 per hpf (0-3)
[2020-06-26] MEDS: Lactulose Oral Soln 20 GM/30 ML UDC PO SCH ×4 (08:25→19:45)
[2020-06-26] MEDS: levoFLOXacin 750 MG/150 ML 750 MG/150 ML BAG IVPB SCH (08:25)
[2020-06-26 09:01] LABS: Basophils % 0.5 %; Eosinophils % 0.2 %; Hematocrit 38.7 % (37.5-50.1); Hemoglobin 13.4 g/dL (12.9-16.9); Immature Granulocytes % 0.5 % (0-4); Lymphocytes # 1.6 K/mcL (0.6-4.6); Lymphocytes % 24.6 %; Mean Corpuscular HGB Conc 34.6 g/dL (31.6-35.5); Mean Corpuscular Hemoglobin 30.7 pg (28.0-33.3); Mean Corpuscular Volume 88.8 fL (83.0-100.0); Mean Platelet Volume 11.7 fL (9.4-12.4); Monocytes # 0.8 K/mcL (0.0-1.3); Monocytes % 12.8 %; Platelet Count 108 K/mcL (140-400); Red Blood Count 4.36 M/mcL (4.19-5.50); Red Cell Distribution Width 13.1 % (11.5-14.5); Segmented Neutrophils % 61.4 %; White Blood Count 6.6 K/mcL (4.3-11.1)
[2020-06-26] MEDS: Insulin LISPRO 300 UNITS/3 ML VIAL SUBQ SCH ×4 (09:12→19:45)
[2020-06-26 09:13] LABS: BUN/Creatinine Ratio 7 (6-26); Blood Urea Nitrogen 4 mg/dL (6-20); Calcium 9.6 mg/dL (8.6-10.3); Carbon Dioxide 22 mEq/L (23-29); Chloride 100 mEq/L (98-107); Glucose 124 mg/dL (70-105); Osmolality,Calculated 278 (280-300); Sodium 135 mEq/L (136-145); eGFR For African Americans > 60 (> 60); eGFR For Non-African Americans > 60 (> 60)
[2020-06-26] MEDS: *HR* LORazepam 2 MG/ML VIAL IVP PRN ×2 (09:17→11:56)
[2020-06-26] MEDS: levETIRAcetam 250 MG TABLET PO SCH ×2 (09:25→19:44)
[2020-06-26 09:50] LABS: Adenovirus Not Detected (Not Detect); Bordetella Pertussis Not Detected (Not Detect); Chlamydophila pneumoniae Not Detected (Not Detect); Coronavirus 229E Not Detected (Not Detect); Coronavirus HKU1 Not Detected (Not Detect); Coronavirus NL63 Not Detected (Not Detect); Coronavirus OC43 Not Detected (Not Detect); Human Metapneumovirus Not Detected (Not Detect); Human Rhinovirus/Enterovirus Not Detected (Not Detect); Influenza A Subtype 2009 H1 Not Detected (Not Detect); Influenza B Not Detected (Not Detect); Mycoplasma pneumoniae Not Detected (Not Detect); Parainfluenza Virus 1 Not Detected (Not Detect); Parainfluenza Virus 2 Not Detected (Not Detect); Parainfluenza Virus 3 Not Detected (Not Detect); Parainfluenza Virus 4 Not Detected (Not Detect); Respiratory Syncytial Virus Not Detected (Not Detect)
[2020-06-26] MEDS: Dexmedetomidine HCl 400 MCG/100 ML MLS IVC SCH ×3 (10:41→19:09)
[2020-06-26] MEDS: Thiamine (B-1) 500 MG in 0.9 % Sodium Chloride 50 ML IVPB SCH ×2 (12:18→18:14)
[2020-06-26] MEDS ORDERED: *HR* LORazepam 2 MG/ML VIAL IVP ONE (12:20)
[2020-06-26 12:48] LABS: Estimated Average Glucose 100 mg/dl; Hemoglobin A1C 5.1 %
[2020-06-26] MEDS: *HR* Heparin 5,000 UNIT/ML VIAL SQ SCH ×2 (15:56→21:30)
[2020-06-26] MEDS: Folic Acid 1 MG in 0.9 % Sodium Chloride 50 ML IVPB SCH (17:42)
[2020-06-27] MEDS: Dexmedetomidine HCl 400 MCG/100 ML MLS IVC SCH ×2 (01:20→13:49)
[2020-06-27] MEDS: Thiamine (B-1) 500 MG in 0.9 % Sodium Chloride 50 ML IVPB SCH ×4 (02:16→17:27)
[2020-06-27 05:20] LABS: Immature Granulocytes % 0.5 % (0-4); Mean Corpuscular HGB Conc 33.6 g/dL (31.6-35.5); Mean Corpuscular Hemoglobin 30.9 pg (28.0-33.3); Monocytes % 8.5 %
[2020-06-27 05:21] LABS: Basophils # 0.1 K/mcL (0.0-0.2); Basophils % 0.9 %; Eosinophils # 0.1 K/mcL (0.0-0.6); Eosinophils % 1.6 %; Hematocrit 39.3 % (37.5-50.1); Hemoglobin 13.2 g/dL (12.9-16.9); Immature Platelets 13.2 % (1.1-6.1); Lymphocytes # 1.7 K/mcL (0.6-4.6); Lymphocytes % 30.4 %; Mean Platelet Volume 11.7 fL (9.4-12.4); Monocytes # 0.5 K/mcL (0.0-1.3); Neutrophils # 3.3 K/mcL (1.6-8.9); Red Blood Count 4.27 M/mcL (4.19-5.50); Red Cell Distribution Width 13.1 % (11.5-14.5); Segmented Neutrophils % 58.1 %; White Blood Count 5.6 K/mcL (4.3-11.1)
[2020-06-27 05:25] LABS: Platelet Count 82 K/mcL (140-400)
[2020-06-27 05:31] LABS: Alanine Aminotransferase 130 Units/L (7-52); Albumin 4.1 g/dL (3.5-5.7); Albumin/Globulin Ratio 1.5 (1.1-2.2); Alkaline Phosphatase 61 Units/L (34-104); Aspartate Amino Transferase 226 Units/L (13-39); BUN/Creatinine Ratio 9 (6-26); Bilirubin,Total 2.7 mg/dL (0.3-1.0); Blood Urea Nitrogen 6 mg/dL (6-20); Calcium 9.7 mg/dL (8.6-10.3); Carbon Dioxide 25 mEq/L (23-29); Chloride 107 mEq/L (98-107); Globulin 2.8 g/dL (2.4-3.5); Glucose 114 mg/dL (70-105); Magnesium 1.7 mg/dL (1.6-2.6); Osmolality,Calculated 290 (280-300); Potassium 3.5 mEq/L (3.5-5.1); Sodium 141 mEq/L (136-145); Total Protein 6.9 g/dL (6.4-8.9); eGFR For African Americans > 60 (> 60); eGFR For Non-African Americans > 60 (> 60)
[2020-06-27] MEDS: *HR* Heparin 5,000 UNIT/ML VIAL SQ SCH ×3 (06:21→21:00)
[2020-06-27] MEDS: levETIRAcetam 250 MG TABLET PO SCH ×2 (07:31→19:33)
[2020-06-27] MEDS: Lactulose Oral Soln 20 GM/30 ML UDC PO SCH ×3 (07:31→19:34)
[2020-06-27] MEDS: levoFLOXacin 750 MG/150 ML 750 MG/150 ML BAG IVPB SCH (07:32)
[2020-06-27] MEDS: Insulin LISPRO 300 UNITS/3 ML VIAL SUBQ SCH ×2 (08:01→11:39)
[2020-06-27] MEDS ORDERED: Nicotine 14 MG PATCH.TD24 TD SCH (09:00)
[2020-06-27] MEDS ORDERED: Ipratropium/Albuterol Neb 3 ML IH PRN (13:43)
[2020-06-27] MEDS ORDERED: Acetaminophen 325 MG TABLET PO PRN (13:43)
[2020-06-27] MEDS ORDERED: Naloxone 0.4 MG/ML INJ IVP PRN (13:43)
[2020-06-27] MEDS: *HR* LORazepam 2 MG/ML VIAL IVP PRN ×4 (15:14→22:08)
[2020-06-27] MEDS: Folic Acid 1 MG in 0.9 % Sodium Chloride 50 ML IVPB SCH ×2 (17:25→17:27)
[2020-06-27] MEDS: Ondansetron 4 MG/2 ML VIAL IVP PRN (22:26)
[2020-06-27] MEDS: Melatonin 3 MG TABLET PO PRN (23:24)
[2020-06-28] MEDS: Dexmedetomidine HCl 400 MCG/100 ML MLS IVC SCH ×2 (01:05→16:58)
[2020-06-28] MEDS: Thiamine (B-1) 500 MG in 0.9 % Sodium Chloride 50 ML IVPB SCH (01:06)
[2020-06-28 04:15] LABS: Hematocrit 35.6 % (37.5-50.1); Hemoglobin 11.6 g/dL (12.9-16.9); Immature Platelets 14.3 % (1.1-6.1); Mean Corpuscular HGB Conc 32.6 g/dL (31.6-35.5); Mean Corpuscular Hemoglobin 30.6 pg (28.0-33.3); Mean Corpuscular Volume 93.9 fL (83.0-100.0); Mean Platelet Volume 12.3 fL (9.4-12.4); Red Blood Count 3.79 M/mcL (4.19-5.50); Red Cell Distribution Width 13.2 % (11.5-14.5); White Blood Count 5.8 K/mcL (4.3-11.1)
[2020-06-28 04:41] LABS: Alanine Aminotransferase 163 Units/L (7-52); Albumin 3.7 g/dL (3.5-5.7); Albumin/Globulin Ratio 1.5 (1.1-2.2); Alkaline Phosphatase 74 Units/L (34-104); Aspartate Amino Transferase 263 Units/L (13-39); BUN/Creatinine Ratio 8 (6-26); Bilirubin,Total 1.3 mg/dL (0.3-1.0); Blood Urea Nitrogen 6 mg/dL (6-20); Calcium 8.8 mg/dL (8.6-10.3); Carbon Dioxide 23 mEq/L (23-29); Chloride 103 mEq/L (98-107); Globulin 2.4 g/dL (2.4-3.5); Glucose 87 mg/dL (70-105); Magnesium 1.5 mg/dL (1.6-2.6); Osmolality,Calculated 277 (280-300); Phosphorous 4.2 mg/dL (2.7-4.5); Sodium 135 mEq/L (136-145); Total Protein 6.1 g/dL (6.4-8.9); eGFR For African Americans > 60 (> 60); eGFR For Non-African Americans > 60 (> 60)
[2020-06-28] MEDS ORDERED: Potassium Chloride Elixir 20 MEQ/15 ML UDC PO ONE (05:06)
[2020-06-28] MEDS: *HR* Heparin 5,000 UNIT/ML VIAL SQ SCH ×2 (05:30→13:24)
[2020-06-28] MEDS: Lactulose Oral Soln 20 GM/30 ML UDC PO SCH ×3 (08:07→21:08)
[2020-06-28] MEDS: levETIRAcetam 250 MG TABLET PO SCH ×2 (08:07→21:08)
[2020-06-28] MEDS ORDERED: Nicotine 14 MG PATCH.TD24 TD SCH (09:00)
[2020-06-28] MEDS ORDERED: Thiamine (B-1) 200 MG in 0.9 % Sodium Chloride 50 ML IVPB SCH (10:00)
[2020-06-28] MEDS: Thiamine (B-1) 200 MG in 0.9 % Sodium Chloride 50 ML IVPB SCH ×2 (10:16→18:05)
[2020-06-28] MEDS: *HR* LORazepam 2 MG/ML VIAL IVP PRN ×4 (11:43→23:28)
[2020-06-28 12:26] LABS: Hepatitis B Surface Antigen Nonreactive (Nonreactive)
[2020-06-28 12:55] LABS: Hepatitis C Virus Antibody Nonreactive (Nonreactive)
[2020-06-28 12:56] LABS: Hepatitis B Core IgM Nonreactive (Nonreactive)
[2020-06-28 12:57] LABS: Hepatitis A Antibody IgM Nonreactive (Nonreactive)
[2020-06-28] MEDS: Folic Acid 1 MG in 0.9 % Sodium Chloride 50 ML IVPB SCH (16:59)
[2020-06-28] MEDS: Nicotine 21 MG PATCH.TD24 TD SCH (22:43)
[2020-06-29] MEDS: *HR* LORazepam 2 MG/ML VIAL IVP PRN ×3 (00:53→21:32)
[2020-06-29] MEDS: Thiamine (B-1) 200 MG in 0.9 % Sodium Chloride 50 ML IVPB SCH ×3 (01:10→18:11)
[2020-06-29] MEDS: Dexmedetomidine HCl 400 MCG/100 ML MLS IVC SCH (01:11)
[2020-06-29 03:38] LABS: Red Cell Distribution Width 13.2 % (11.5-14.5)
[2020-06-29 03:40] LABS: Basophils % 0.8 %; Eosinophils # 0.2 K/mcL (0.0-0.6); Eosinophils % 2.9 %; Hematocrit 36.2 % (37.5-50.1); Hemoglobin 11.9 g/dL (12.9-16.9); Immature Granulocytes % 0.6 % (0-4); Immature Platelets 10.5 % (1.1-6.1); Lymphocytes # 1.4 K/mcL (0.6-4.6); Lymphocytes % 26.7 %; Mean Corpuscular HGB Conc 32.9 g/dL (31.6-35.5); Mean Corpuscular Hemoglobin 30.5 pg (28.0-33.3); Mean Corpuscular Volume 92.8 fL (83.0-100.0); Mean Platelet Volume 11.2 fL (9.4-12.4); Monocytes # 0.8 K/mcL (0.0-1.3); Monocytes % 14.9 %; Neutrophils # 2.9 K/mcL (1.6-8.9); Platelet Count 108 K/mcL (140-400); Segmented Neutrophils % 54.1 %; White Blood Count 5.3 K/mcL (4.3-11.1)
[2020-06-29 03:44] LABS: VBG Ionized Calcium 1.27 mmol/L (1.15-1.35)
[2020-06-29 03:56] LABS: Alanine Aminotransferase 163 Units/L (7-52); Albumin 3.8 g/dL (3.5-5.7); Albumin/Globulin Ratio 1.5 (1.1-2.2); Alkaline Phosphatase 74 Units/L (34-104); Aspartate Amino Transferase 145 Units/L (13-39); BUN/Creatinine Ratio 7 (6-26); Bilirubin,Total 1.2 mg/dL (0.3-1.0); Blood Urea Nitrogen 4 mg/dL (6-20); Carbon Dioxide 24 mEq/L (23-29); Chloride 110 mEq/L (98-107); Globulin 2.5 g/dL (2.4-3.5); Glucose 112 mg/dL (70-105); Osmolality,Calculated 290 (280-300); Phosphorous 4.4 mg/dL (2.7-4.5); Potassium 3.4 mEq/L (3.5-5.1); Sodium 141 mEq/L (136-145); Total Protein 6.3 g/dL (6.4-8.9); eGFR For African Americans > 60 (> 60); eGFR For Non-African Americans > 60 (> 60)
[2020-06-29] MEDS ORDERED: Potassium Chloride Elixir 20 MEQ/15 ML UDC PO ONE ×2 (05:03→11:22)
[2020-06-29] MEDS: levETIRAcetam 250 MG TABLET PO SCH ×2 (08:19→20:20)
[2020-06-29] MEDS: Lactulose Oral Soln 20 GM/30 ML UDC PO SCH ×3 (08:20→20:20)
[2020-06-29] MEDS: Nicotine 21 MG PATCH.TD24 TD SCH (13:54)
[2020-06-29] MEDS: Folic Acid 1 MG in 0.9 % Sodium Chloride 50 ML IVPB SCH (18:04)
[2020-06-29] MEDS: Melatonin 3 MG TABLET PO PRN (21:52)
[2020-06-30] MEDS: Thiamine (B-1) 200 MG in 0.9 % Sodium Chloride 50 ML IVPB SCH ×3 (02:58→16:43)
[2020-06-30] MEDS: Lactulose Oral Soln 20 GM/30 ML UDC PO SCH ×3 (08:13→19:18)
[2020-06-30] MEDS: *HR* LORazepam 2 MG/ML VIAL IVP PRN ×5 (08:13→21:43)
[2020-06-30] MEDS: levETIRAcetam 250 MG TABLET PO SCH ×2 (08:13→19:19)
[2020-06-30] MEDS: Nicotine 21 MG PATCH.TD24 TD SCH (08:14)
[2020-06-30] MEDS: Folic Acid 1 MG in 0.9 % Sodium Chloride 50 ML IVPB SCH (16:44)
[2020-06-30] MEDS: Ondansetron 4 MG/2 ML VIAL IVP PRN (19:24)
[2020-06-30] MEDS: Melatonin 3 MG TABLET PO PRN (21:44)
[2020-07-01] MEDS: Thiamine (B-1) 200 MG in 0.9 % Sodium Chloride 50 ML IVPB SCH ×2 (02:03→10:08)
[2020-07-01 02:49] LABS: Basophils # 0.1 K/mcL (0.0-0.2); Basophils % 0.8 %; Eosinophils # 0.1 K/mcL (0.0-0.6); Eosinophils % 1.3 %; Hematocrit 36.4 % (37.5-50.1); Hemoglobin 11.9 g/dL (12.9-16.9); Lymphocytes # 2.4 K/mcL (0.6-4.6); Lymphocytes % 29.4 %; Mean Corpuscular HGB Conc 32.7 g/dL (31.6-35.5); Mean Corpuscular Hemoglobin 30.7 pg (28.0-33.3); Mean Corpuscular Volume 93.8 fL (83.0-100.0); Mean Platelet Volume 10.3 fL (9.4-12.4); Monocytes # 1.7 K/mcL (0.0-1.3); Monocytes % 20.4 %; Neutrophils # 3.9 K/mcL (1.6-8.9); Platelet Count 183 K/mcL (140-400); Red Blood Count 3.88 M/mcL (4.19-5.50); Red Cell Distribution Width 13.6 % (11.5-14.5); Segmented Neutrophils % 47.1 %
[2020-07-01 02:54] LABS: White Blood Count 8.2 K/mcL (4.3-11.1)
[2020-07-01 03:10] LABS: BUN/Creatinine Ratio 13 (6-26); Blood Urea Nitrogen 8 mg/dL (6-20); Calcium 9.5 mg/dL (8.6-10.3); Carbon Dioxide 26 mEq/L (23-29); Chloride 104 mEq/L (98-107); Glucose 111 mg/dL (70-105); Osmolality,Calculated 287 (280-300); Potassium 3.6 mEq/L (3.5-5.1); Sodium 139 mEq/L (136-145); eGFR For African Americans > 60 (> 60); eGFR For Non-African Americans > 60 (> 60)
[2020-07-01] MEDS: *HR* LORazepam 2 MG/ML VIAL IVP PRN ×4 (03:19→22:38)
[2020-07-01] MEDS: Nicotine 21 MG PATCH.TD24 TD SCH (10:05)
[2020-07-01] MEDS: Lactulose Oral Soln 20 GM/30 ML UDC PO SCH ×3 (10:06→20:53)
[2020-07-01] MEDS: levETIRAcetam 250 MG TABLET PO SCH ×2 (10:07→20:53)
[2020-07-02] MEDS ORDERED: *HR* Enoxaparin 40 MG/0.4 ML SYRINGE SQ SCH (06:00)
[2020-07-02] MEDS ORDERED: Folic Acid 1 MG TABLET PO SCH (09:00)
[2020-07-02] MEDS ORDERED: Thiamine (B-1) 100 MG TABLET PO SCH (09:00)
[2020-07-02] MEDS: levETIRAcetam 250 MG TABLET PO SCH (09:34)
[2020-07-02] MEDS: Nicotine 21 MG PATCH.TD24 TD SCH (09:36)
[2020-07-02] MEDS: Lactulose Oral Soln 20 GM/30 ML UDC PO SCH (09:36)
[2020-07-02 10:59] VITALS: BP 123/80
== END 2020-07-02 12:35 | disposition home or self-care (01) | DRG 775 ==
LOC: EMEROOARM 19:29 → CDU 19:29 → SUATTDRO 06-25 01:35 → CDU 06-25 02:13 → 3BNU 06-25 18:38 → ICNU 06-26 10:26 → SUATTDRO 06-26 11:30 → 2NNU 06-29 07:25 → 2ANU 06-30 15:49
PROVIDERS: ADMIT Student in an Organized Health Care Education/Training Program; ATTEND Internal Medicine

== ENCOUNTER 2021-01-09 10:44 | Inpatient (IN) ==
[2021-01-09] MEDS ORDERED: *HR* LORazepam 2 MG/ML VIAL IVP ONE (10:54)
[2021-01-09 11:48] LABS: Basophils % 0.5 %; Eosinophils % 0.3 %; Hematocrit 42.5 % (37.5-50.1); Hemoglobin 14.5 g/dL (12.9-16.9); Immature Granulocytes % 0.5 % (0-4); Lymphocytes % 17.5 %; Mean Corpuscular HGB Conc 34.1 g/dL (31.6-35.5); Mean Corpuscular Hemoglobin 31.1 pg (28.0-33.3); Mean Corpuscular Volume 91.2 fL (83.0-100.0); Mean Platelet Volume 10.6 fL (9.4-12.4); Monocytes # 0.7 K/mcL (0.0-1.3); Monocytes % 11.1 %; Neutrophils # 4.1 K/mcL (1.6-8.9); Platelet Count 141 K/mcL (140-400); Red Blood Count 4.66 M/mcL (4.19-5.50); Red Cell Distribution Width 13.1 % (11.5-14.5); Segmented Neutrophils % 70.1 %; White Blood Count 5.9 K/mcL (4.3-11.1)
[2021-01-09 12:00] LABS: BUN/Creatinine Ratio 8 (6-26); Blood Urea Nitrogen 5 mg/dL (6-20); Calcium 9.9 mg/dL (8.6-10.3); Carbon Dioxide 24 mEq/L (23-29); Chloride 98 mEq/L (98-107); Glucose 145 mg/dL (70-105); Osmolality,Calculated 280 (280-300); Potassium 4.2 mEq/L (3.5-5.1); Sodium 135 mEq/L (136-145); eGFR For African Americans > 60 (> 60); eGFR For Non-African Americans > 60 (> 60)
[2021-01-09] MEDS ORDERED: Naloxone 0.4 MG/ML INJ IVP PRN (12:50)
[2021-01-09] MEDS ORDERED: Ondansetron 4 MG/2 ML VIAL IVP PRN (12:55)
[2021-01-09] MEDS ORDERED: *HR* LORazepam 2 MG/ML VIAL IVP PRN ×2 (13:25)
[2021-01-09] MEDS ORDERED: levETIRAcetam 1,000 MG in 0.9 % Sodium Chloride 100 ML IVPB ONE (15:44)
[2021-01-09] MEDS: *HR* LORazepam 0.5 MG TABLET PO SCH ×2 (15:56→22:00)
[2021-01-09] MEDS: Folic Acid 1 MG TABLET PO SCH (15:56)
[2021-01-09] MEDS: Thiamine (B-1) 100 MG TABLET PO SCH (15:56)
[2021-01-09 17:54] LABS: Amphetamine Screen,Urine Negative ng/mL (Cutoff=1000); Barbiturate Screen,Urine Negative ng/mL (Cutoff=200); Benzodiazepines Screen,Urine Negative ng/mL (Cutoff=200); Cannabinoid Screen,Urine Positive ng/mL (Cutoff = 50); Cocaine Screen,Urine Negative ng/mL (Cutoff= 300); Opiate Screen,Urine Negative ng/mL (Cutoff=300); Phencyclidine Screen,Urine Negative ng/mL (Cutoff=25)
[2021-01-09] MEDS: *HR* LORazepam 2 MG/ML VIAL IVP PRN (19:41)
[2021-01-09] MEDS: levETIRAcetam 250 MG TABLET PO SCH (22:00)
[2021-01-09] MEDS: Divalproex (24 HR) 500 MG TABLET PO SCH (22:00)
[2021-01-10 01:57] LABS: Basophils % 0.4 %; Eosinophils % 0.1 %; Hematocrit 40.7 % (37.5-50.1); Hemoglobin 13.8 g/dL (12.9-16.9); Immature Granulocytes % 0.4 % (0-4); Immature Platelets 8.1 % (1.1-6.1); Lymphocytes # 1.7 K/mcL (0.6-4.6); Lymphocytes % 24.2 %; Mean Corpuscular HGB Conc 33.9 g/dL (31.6-35.5); Mean Corpuscular Volume 91.5 fL (83.0-100.0); Mean Platelet Volume 11.2 fL (9.4-12.4); Monocytes # 1.2 K/mcL (0.0-1.3); Neutrophils # 3.9 K/mcL (1.6-8.9); Platelet Count 130 K/mcL (140-400); Red Blood Count 4.45 M/mcL (4.19-5.50); Red Cell Distribution Width 13.1 % (11.5-14.5); Segmented Neutrophils % 56.9 %; White Blood Count 6.9 K/mcL (4.3-11.1)
[2021-01-10 02:16] LABS: BUN/Creatinine Ratio 11 (6-26); Blood Urea Nitrogen 6 mg/dL (6-20); Calcium 9.9 mg/dL (8.6-10.3); Carbon Dioxide 24 mEq/L (23-29); Chloride 97 mEq/L (98-107); Glucose 92 mg/dL (70-105); Osmolality,Calculated 273 (280-300); Potassium 3.5 mEq/L (3.5-5.1); Sodium 133 mEq/L (136-145); eGFR For African Americans > 60 (> 60); eGFR For Non-African Americans > 60 (> 60)
[2021-01-10] MEDS: *HR* Enoxaparin 40 MG/0.4 ML SYRINGE SQ SCH (06:02)
[2021-01-10] MEDS: *HR* LORazepam 2 MG/ML VIAL IVP PRN (06:07)
[2021-01-10] MEDS: Nicotine 21 MG PATCH.TD24 TD SCH (08:28)
[2021-01-10] MEDS: Thiamine (B-1) 100 MG TABLET PO SCH (08:30)
[2021-01-10] MEDS: *HR* LORazepam 0.5 MG TABLET PO SCH ×4 (08:30→20:13)
[2021-01-10] MEDS: Divalproex (24 HR) 500 MG TABLET PO SCH ×2 (08:30→20:12)
[2021-01-10] MEDS: Folic Acid 1 MG TABLET PO SCH (08:30)
[2021-01-10] MEDS: levETIRAcetam 250 MG TABLET PO SCH ×2 (08:32→20:12)
[2021-01-10] MEDS ORDERED: THIAMINE HCL 50 MG PO SCH (09:00)
[2021-01-10] MEDS ORDERED: Folic Acid 1 MG TABLET PO SCH (09:00)
[2021-01-11] MEDS: Acetaminophen 325 MG TABLET PO PRN ×2 (03:40→20:26)
[2021-01-11] MEDS: *HR* Enoxaparin 40 MG/0.4 ML SYRINGE SQ SCH (06:04)
[2021-01-11] MEDS: Nicotine 21 MG PATCH.TD24 TD SCH (08:15)
[2021-01-11] MEDS: levETIRAcetam 250 MG TABLET PO SCH ×2 (08:16→20:26)
[2021-01-11] MEDS: Thiamine (B-1) 100 MG TABLET PO SCH (08:16)
[2021-01-11] MEDS: Folic Acid 1 MG TABLET PO SCH (08:17)
[2021-01-11] MEDS: *HR* LORazepam 0.5 MG TABLET PO SCH ×4 (08:17→20:26)
[2021-01-11] MEDS: Divalproex (24 HR) 500 MG TABLET PO SCH ×2 (08:17→20:26)
[2021-01-11] MEDS ORDERED: *HR* LORazepam 2 MG/ML VIAL IVP ONE (10:10)
[2021-01-11] MEDS: Melatonin 3 MG TABLET PO PRN (21:26)
[2021-01-12] MEDS: *HR* Enoxaparin 40 MG/0.4 ML SYRINGE SQ SCH (05:50)
[2021-01-12] MEDS: levETIRAcetam 250 MG TABLET PO SCH ×2 (07:52→20:18)
[2021-01-12] MEDS: Nicotine 21 MG PATCH.TD24 TD SCH (07:52)
[2021-01-12] MEDS: Thiamine (B-1) 100 MG TABLET PO SCH (07:53)
[2021-01-12] MEDS: *HR* LORazepam 0.5 MG TABLET PO SCH ×4 (07:53→20:18)
[2021-01-12] MEDS: Folic Acid 1 MG TABLET PO SCH (07:53)
[2021-01-12] MEDS: Divalproex (24 HR) 500 MG TABLET PO SCH ×2 (07:53→20:18)
[2021-01-12] MEDS: Melatonin 3 MG TABLET PO PRN (19:15)
[2021-01-13 02:28] LABS: Hematocrit 39.5 % (37.5-50.1); Immature Platelets 9.5 % (1.1-6.1); Mean Corpuscular HGB Conc 32.9 g/dL (31.6-35.5); Mean Corpuscular Hemoglobin 31.3 pg (28.0-33.3); Mean Corpuscular Volume 95.2 fL (83.0-100.0); Mean Platelet Volume 10.9 fL (9.4-12.4); Red Blood Count 4.15 M/mcL (4.19-5.50); Red Cell Distribution Width 12.3 % (11.5-14.5); White Blood Count 6.2 K/mcL (4.3-11.1)
[2021-01-13 03:07] LABS: BUN/Creatinine Ratio 20 (6-26); Blood Urea Nitrogen 10 mg/dL (6-20); Calcium 9.4 mg/dL (8.6-10.3); Carbon Dioxide 20 mEq/L (23-29); Chloride 99 mEq/L (98-107); Glucose 100 mg/dL (70-105); Osmolality,Calculated 273 (280-300); Potassium 3.5 mEq/L (3.5-5.1); Sodium 132 mEq/L (136-145); eGFR For African Americans > 60 (> 60); eGFR For Non-African Americans > 60 (> 60)
[2021-01-13] MEDS: levETIRAcetam 250 MG TABLET PO SCH (08:08)
[2021-01-13] MEDS: *HR* Enoxaparin 40 MG/0.4 ML SYRINGE SQ SCH (08:08)
[2021-01-13] MEDS: *HR* LORazepam 0.5 MG TABLET PO SCH ×2 (08:09→12:02)
[2021-01-13] MEDS: Folic Acid 1 MG TABLET PO SCH (08:09)
[2021-01-13] MEDS: Nicotine 21 MG PATCH.TD24 TD SCH (08:09)
[2021-01-13] MEDS: Thiamine (B-1) 100 MG TABLET PO SCH (08:09)
[2021-01-13] MEDS: Divalproex (24 HR) 500 MG TABLET PO SCH (08:09)
[2021-01-13 11:56] VITALS: BP 119/83; PULSE 77; TEMP 98.9; O2SAT 98
== END 2021-01-13 16:40 | disposition home or self-care (01) | DRG 53 ==
LOC: SUATTDRO → EMEROOARM 10:44 → 3BNU 10:44 → SUATTDRO 14:46 → 3BNU 15:40
PROVIDERS: ADMIT Pharmacist; ATTEND Registered Nurse

== ENCOUNTER 2021-05-17 08:24 | Inpatient (IN) ==
[2021-05-17 09:11] LABS: Hematocrit 40.6 % (37.5-50.1)
[2021-05-17 09:13] LABS: Basophils % 1.1 %; Eosinophils % 0.5 %; Hemoglobin 13.9 g/dL (12.9-16.9); Immature Granulocytes % 0.5 % (0-4); Immature Platelets 9.2 % (1.1-6.1); Lymphocytes # 1.1 K/mcL (0.6-4.6); Lymphocytes % 29.4 %; Mean Corpuscular HGB Conc 34.2 g/dL (31.6-35.5); Mean Corpuscular Hemoglobin 31.4 pg (28.0-33.3); Mean Corpuscular Volume 91.9 fL (83.0-100.0); Mean Platelet Volume 10.5 fL (9.4-12.4); Monocytes # 0.6 K/mcL (0.0-1.3); Platelet Count 95 K/mcL (140-400); Red Blood Count 4.42 M/mcL (4.19-5.50); Red Cell Distribution Width 13.5 % (11.5-14.5); Segmented Neutrophils % 53.5 %; White Blood Count 3.7 K/mcL (4.3-11.1)
[2021-05-17] MEDS ORDERED: Ondansetron 4 MG/2 ML VIAL IVP ONE (09:14)
[2021-05-17 09:31] LABS: BUN/Creatinine Ratio 4 (6-26); Blood Urea Nitrogen 3 mg/dL (6-20); Calcium 9.4 mg/dL (8.6-10.3); Carbon Dioxide 19 mEq/L (23-29); Chloride 94 mEq/L (98-107); Ethanol 146 mg/dL (Less than 10); Glucose 137 mg/dL (70-105); Osmolality,Calculated 281 (280-300); Potassium 3.6 mEq/L (3.5-5.1); Sodium 136 mEq/L (136-145); eGFR For African Americans > 60 (> 60); eGFR For Non-African Americans > 60 (> 60)
[2021-05-17] MEDS ORDERED: levETIRAcetam 250 MG TABLET PO STA (10:19)
[2021-05-17] MEDS ORDERED: *HR* LORazepam 2 MG/ML VIAL IVP ONE (11:12)
[2021-05-17] MEDS ORDERED: Naloxone 0.4 MG/ML INJ IVP PRN (11:34)
[2021-05-17] MEDS ORDERED: *HR* LORazepam 2 MG/ML VIAL IVP PRN ×3 (11:36)
[2021-05-17] MEDS: Dexmedetomidine HCl 400 MCG/100 ML MLS IVC SCH (14:10)
[2021-05-17] MEDS: levETIRAcetam 250 MG TABLET PO SCH (19:33)
[2021-05-17] MEDS: Divalproex (24 HR) 500 MG TABLET PO SCH (19:33)
[2021-05-18] MEDS: Dexmedetomidine HCl 400 MCG/100 ML MLS IVC SCH ×2 (02:58→17:46)
[2021-05-18 03:01] LABS: Hemoglobin 13.1 g/dL (12.9-16.9); Immature Granulocytes % 0.4 % (0-4)
[2021-05-18 03:03] LABS: Basophils % 0.4 %; Hematocrit 37.9 % (37.5-50.1); Immature Platelets 10.2 % (1.1-6.1); Lymphocytes # 1.4 K/mcL (0.6-4.6); Lymphocytes % 31.6 %; Mean Corpuscular HGB Conc 34.6 g/dL (31.6-35.5); Mean Corpuscular Hemoglobin 31.7 pg (28.0-33.3); Mean Corpuscular Volume 91.8 fL (83.0-100.0); Mean Platelet Volume 10.9 fL (9.4-12.4); Monocytes # 0.3 K/mcL (0.0-1.3); Monocytes % 6.5 %; Red Blood Count 4.13 M/mcL (4.19-5.50); Red Cell Distribution Width 13.2 % (11.5-14.5); Segmented Neutrophils % 61.1 %; White Blood Count 4.5 K/mcL (4.3-11.1)
[2021-05-18 03:06] LABS: Neutrophils # 2.8 K/mcL (1.6-8.9); Platelet Count 60 K/mcL (140-400)
[2021-05-18 03:18] LABS: BUN/Creatinine Ratio 9 (6-26); Blood Urea Nitrogen 5 mg/dL (6-20); Calcium 9.7 mg/dL (8.6-10.3); Carbon Dioxide 26 mEq/L (23-29); Chloride 98 mEq/L (98-107); Glucose 117 mg/dL (70-105); Osmolality,Calculated 280 (280-300); Potassium 3.6 mEq/L (3.5-5.1); Sodium 136 mEq/L (136-145); eGFR For African Americans > 60 (> 60); eGFR For Non-African Americans > 60 (> 60)
[2021-05-18] MEDS: *HR* Enoxaparin 30 MG/0.3 ML SYRINGE SQ SCH (05:52)
[2021-05-18] MEDS: levETIRAcetam 250 MG TABLET PO SCH ×2 (08:49→19:41)
[2021-05-18] MEDS: Thiamine (B-1) 100 MG TABLET PO SCH (08:49)
[2021-05-18] MEDS: Divalproex (24 HR) 500 MG TABLET PO SCH ×2 (08:49→19:42)
[2021-05-18] MEDS: Folic Acid 1 MG TABLET PO SCH (08:50)
[2021-05-18 17:54] LABS: Bacteria,Urine Few per hpf (None-Few); Bilirubin,Urine Negative (Negative); Blood,Urine Negative (Negative); Clarity,Urine Turbid (Clear); Color,Urine Light-Orange (Yellow); Glucose,Urine (UA) Normal (Normal); Ketones,Urine 10 mg/dL (Negative); Leukocyte Esterase,Urine Moderate (Negative); Mucus,Urine Few per lpf (None-Few); Nitrite,Urine Negative (Negative); PH,Urine 7.5 pH Units (5.0-8.0); Protein,Urine Negative (Neg-Trace); RBC,Urine 0-3 per hpf (0-3); Specific Gravity,Urine 1.012 (1.010-1.025); Squamous Epithelial Cell,Urine Few per hpf (None-Few); Urobilinogen,Urine >=8.0 mg/dL (Normal)
[2021-05-19] MEDS: *HR* Enoxaparin 30 MG/0.3 ML SYRINGE SQ SCH (06:03)
[2021-05-19 06:42] LABS: Basophils % 0.6 %; Eosinophils # 0.1 K/mcL (0.0-0.6); Eosinophils % 0.9 %; Hematocrit 37.5 % (37.5-50.1); Hemoglobin 13.2 g/dL (12.9-16.9); Immature Granulocytes % 0.4 % (0-4); Immature Platelets 19.9 % (1.1-6.1); Lymphocytes # 1.8 K/mcL (0.6-4.6); Lymphocytes % 25.3 %; Mean Corpuscular HGB Conc 35.2 g/dL (31.6-35.5); Mean Corpuscular Hemoglobin 31.6 pg (28.0-33.3); Mean Corpuscular Volume 89.7 fL (83.0-100.0); Mean Platelet Volume 11.6 fL (9.4-12.4); Monocytes # 0.6 K/mcL (0.0-1.3); Monocytes % 7.8 %; Neutrophils # 4.6 K/mcL (1.6-8.9); Red Blood Count 4.18 M/mcL (4.19-5.50); Red Cell Distribution Width 12.1 % (11.5-14.5)
[2021-05-19 06:43] LABS: Platelet Count 50 K/mcL (140-400)
[2021-05-19 07:00] LABS: Platelet Estimate Decreased (Normal)
[2021-05-19 07:03] LABS: BUN/Creatinine Ratio 7 (6-26); Blood Urea Nitrogen 3 mg/dL (6-20); Calcium 9.5 mg/dL (8.6-10.3); Carbon Dioxide 25 mEq/L (23-29); Chloride 91 mEq/L (98-107); Glucose 106 mg/dL (70-105); Osmolality,Calculated 263 (280-300); Sodium 128 mEq/L (136-145); eGFR For African Americans > 60 (> 60); eGFR For Non-African Americans > 60 (> 60)
[2021-05-19] MEDS: Thiamine (B-1) 100 MG TABLET PO SCH (07:38)
[2021-05-19] MEDS: Divalproex (24 HR) 500 MG TABLET PO SCH (07:38)
[2021-05-19] MEDS: Folic Acid 1 MG TABLET PO SCH (07:39)
[2021-05-19] MEDS: levETIRAcetam 250 MG TABLET PO SCH (07:39)
[2021-05-19 08:22] VITALS: BP 114/82; PULSE 91; TEMP 97.9; O2SAT 98
== END 2021-05-19 09:53 | disposition home or self-care (01) | DRG 53 ==
LOC: 3NENU 08:24 → EMEROOARM 08:24 → 3NENU 13:05
PROVIDERS: ADMIT Internal Medicine; ATTEND Internal Medicine

== ENCOUNTER 2021-11-06 04:12 | Observation (INO) ==
[2021-11-06] MEDS ORDERED: levETIRAcetam 1,000 MG in 0.9 % Sodium Chloride 100 ML IVPB ONE (04:25)
[2021-11-06] MEDS ORDERED: 0.9 % Sodium Chloride 1,000 ML IV ONE ×2 (04:26→07:11)
[2021-11-06 04:55] LABS: Basophils # 0.1 K/mcL (0.0-0.2); Basophils % 0.7 %; Eosinophils % 0.4 %; Hematocrit 45.9 % (37.5-50.1); Hemoglobin 16.1 g/dL (12.9-16.9); Immature Granulocytes % 0.7 % (0-4); Lymphocytes # 1.2 K/mcL (0.6-4.6); Lymphocytes % 16.8 %; Mean Corpuscular HGB Conc 35.1 g/dL (31.6-35.5); Mean Corpuscular Hemoglobin 31.3 pg (28.0-33.3); Mean Corpuscular Volume 89.3 fL (83.0-100.0); Mean Platelet Volume 11.3 fL (9.4-12.4); Monocytes # 0.7 K/mcL (0.0-1.3); Monocytes % 9.9 %; Neutrophils # 5.2 K/mcL (1.6-8.9); Platelet Count 144 K/mcL (140-400); Red Blood Count 5.14 M/mcL (4.19-5.50); Red Cell Distribution Width 13.9 % (11.5-14.5); Segmented Neutrophils % 71.5 %; White Blood Count 7.3 K/mcL (4.3-11.1)
[2021-11-06 05:16] LABS: Alanine Aminotransferase 34 Units/L (7-52); Albumin 4.7 g/dL (3.5-5.7); Albumin/Globulin Ratio 1.2 (1.1-2.2); Alkaline Phosphatase 197 Units/L (34-104); Aspartate Amino Transferase 106 Units/L (13-39); BUN/Creatinine Ratio 10 (6-26); Bilirubin,Total 1.8 mg/dL (0.3-1.0); Blood Urea Nitrogen 6 mg/dL (6-20); Calcium 10.2 mg/dL (8.6-10.3); Carbon Dioxide 27 mEq/L (23-29); Chloride 95 mEq/L (98-107); Creatine Kinase 86 Units/L (30-223); Ethanol < 10 mg/dL (Less than 10); Glucose 137 mg/dL (70-105); Magnesium 1.8 mg/dL (1.6-2.6); Osmolality,Calculated 276 (280-300); Phosphorous 4.1 mg/dL (2.7-4.5); Sodium 133 mEq/L (136-145); Total Protein 8.7 g/dL (6.4-8.9); Valproate 82 mcg/mL (50-100)
[2021-11-06 05:25] LABS: Bilirubin,Urine Negative (Negative); Blood,Urine Negative (Negative); Clarity,Urine Clear (Clear); Color,Urine Colorless (Yellow); Glucose,Urine (UA) Normal (Normal); Ketones,Urine Trace mg/dL (Negative); Leukocyte Esterase,Urine Negative (Negative); Nitrite,Urine Negative (Negative); PH,Urine 7.5 pH Units (5.0-8.0); Protein,Urine Trace mg/dL (Neg-Trace); Specific Gravity,Urine 1.014 (1.010-1.025); Urobilinogen,Urine Normal (Normal)
[2021-11-06 05:41] LABS: Amphetamine Screen,Urine Negative ng/mL (Cutoff=1000); Barbiturate Screen,Urine Negative ng/mL (Cutoff=200); Benzodiazepines Screen,Urine Negative ng/mL (Cutoff=200); Cannabinoid Screen,Urine Positive ng/mL (Cutoff = 50); Cocaine Screen,Urine Negative ng/mL (Cutoff= 300); Opiate Screen,Urine Negative ng/mL (Cutoff=300); Phencyclidine Screen,Urine Negative ng/mL (Cutoff=25)
[2021-11-06] MEDS ORDERED: diazePAM 10 MG/2 ML SYRINGE IVP STA (07:07)
[2021-11-06] MEDS ORDERED: diazePAM 10 MG/2 ML SYRINGE IVP PRN ×4 (07:28)
[2021-11-06] MEDS ORDERED: Ondansetron 4 MG/2 ML VIAL IVP PRN (07:28)
[2021-11-06] MEDS ORDERED: Naloxone 0.4 MG/ML INJ IVP PRN (07:28)
[2021-11-06] MEDS ORDERED: *HR* Labetalol 20 MG/4 ML SYRINGE IVP PRN (07:47)
[2021-11-06] MEDS: Folic Acid 1 MG TABLET PO SCH (09:06)
[2021-11-06] MEDS: Thiamine (B-1) 100 MG TABLET PO SCH (09:06)
[2021-11-06] MEDS ORDERED: Valproic Acid INJ 500 MG in 0.9 % Sodium Chloride 100 ML IVPB ONE (09:06)
[2021-11-06] MEDS: Nicotine 14 MG PATCH.TD24 TD SCH (10:16)
[2021-11-06] MEDS ORDERED: Ibuprofen 400 MG TABLET PO PRN (13:27)
[2021-11-06 14:05] LABS: Adenovirus Not Detected (Not Detect); Coronavirus 229E Not Detected (Not Detect); Coronavirus HKU1 Not Detected (Not Detect); Coronavirus NL63 Not Detected (Not Detect); Coronavirus OC43 Not Detected (Not Detect); Human Metapneumovirus Not Detected (Not Detect); Human Rhinovirus/Enterovirus Not Detected (Not Detect); SARS-CoV-2 Not Detected (Not Detect)
[2021-11-06 14:06] LABS: Bordetella Pertussis Not Detected (Not Detect); Chlamydophila pneumoniae Not Detected (Not Detect); Influenza A Subtype 2009 H1 Not Detected (Not Detect); Influenza B Not Detected (Not Detect); Mycoplasma pneumoniae Not Detected (Not Detect); Parainfluenza Virus 1 Not Detected (Not Detect); Parainfluenza Virus 2 Not Detected (Not Detect); Parainfluenza Virus 3 Not Detected (Not Detect); Parainfluenza Virus 4 Not Detected (Not Detect); Respiratory Syncytial Virus Not Detected (Not Detect)
[2021-11-07 03:02] LABS: Basophils % 0.4 %; Hematocrit 44.7 % (37.5-50.1); Immature Granulocytes % 0.4 % (0-4); Mean Corpuscular Hemoglobin 31.4 pg (28.0-33.3)
[2021-11-07 03:03] LABS: Hemoglobin 15.3 g/dL (12.9-16.9); Immature Platelets 11.3 % (1.1-6.1); Lymphocytes # 1.1 K/mcL (0.6-4.6); Lymphocytes % 15.1 %; Mean Corpuscular HGB Conc 34.2 g/dL (31.6-35.5); Mean Corpuscular Volume 91.6 fL (83.0-100.0); Mean Platelet Volume 11.6 fL (9.4-12.4); Monocytes # 1.1 K/mcL (0.0-1.3); Monocytes % 14.3 %; Neutrophils # 5.2 K/mcL (1.6-8.9); Platelet Count 110 K/mcL (140-400); Red Blood Count 4.88 M/mcL (4.19-5.50); Red Cell Distribution Width 13.8 % (11.5-14.5); Segmented Neutrophils % 69.8 %
[2021-11-07 03:05] LABS: INR 1.1; Prothrombin Time 12.6 Seconds (9.4-12.1)
[2021-11-07 03:08] LABS: White Blood Count 7.4 K/mcL (4.3-11.1)
[2021-11-07 03:22] LABS: Alanine Aminotransferase 21 Units/L (7-52); Albumin 3.9 g/dL (3.5-5.7); Albumin/Globulin Ratio 1.1 (1.1-2.2); Alkaline Phosphatase 128 Units/L (34-104); Aspartate Amino Transferase 55 Units/L (13-39); BUN/Creatinine Ratio 18 (6-26); Bilirubin,Direct 0.9 mg/dL (0.0-0.2); Bilirubin,Indirect 1.8 mg/dL (0.0-1.0); Bilirubin,Total 2.7 mg/dL (0.3-1.0); Blood Urea Nitrogen 9 mg/dL (6-20); Calcium 9.6 mg/dL (8.6-10.3); Carbon Dioxide 25 mEq/L (23-29); Chloride 99 mEq/L (98-107); Globulin 3.6 g/dL (2.4-3.5); Glucose 102 mg/dL (70-105); Osmolality,Calculated 281 (280-300); Potassium 3.2 mEq/L (3.5-5.1); Sodium 136 mEq/L (136-145); Total Protein 7.5 g/dL (6.4-8.9)
[2021-11-07] MEDS: *HR* Enoxaparin 40 MG/0.4 ML SYRINGE SQ SCH (04:45)
[2021-11-07] MEDS: Folic Acid 1 MG TABLET PO SCH (07:17)
[2021-11-07] MEDS: Nicotine 14 MG PATCH.TD24 TD SCH (07:17)
[2021-11-07] MEDS: Thiamine (B-1) 100 MG TABLET PO SCH (07:17)
[2021-11-07] MEDS: diazePAM 10 MG/2 ML SYRINGE IVP PRN ×3 (07:21→20:08)
[2021-11-07] MEDS: Divalproex (12 HR) 500 MG TABLET PO SCH ×2 (11:18→20:44)
[2021-11-07] MEDS: levETIRAcetam 250 MG TABLET PO SCH ×2 (11:18→18:20)
[2021-11-07] MEDS: Cyanocobalamin (B-12) 1,000 MCG TABLET PO SCH ×2 (11:18→20:44)
[2021-11-07] MEDS ORDERED: Melatonin 3 MG TABLET PO ONE (21:07)
[2021-11-08] MEDS: *HR* Enoxaparin 40 MG/0.4 ML SYRINGE SQ SCH (05:59)
[2021-11-08] MEDS: diazePAM 10 MG/2 ML SYRINGE IVP PRN ×2 (06:00→16:59)
[2021-11-08] MEDS: levETIRAcetam 250 MG TABLET PO SCH ×2 (06:00→17:34)
[2021-11-08] MEDS: Nicotine 14 MG PATCH.TD24 TD SCH (09:03)
[2021-11-08] MEDS: Thiamine (B-1) 100 MG TABLET PO SCH (09:04)
[2021-11-08] MEDS: Cyanocobalamin (B-12) 1,000 MCG TABLET PO SCH ×2 (09:04→21:20)
[2021-11-08] MEDS: Folic Acid 1 MG TABLET PO SCH (09:04)
[2021-11-08] MEDS: Divalproex (12 HR) 500 MG TABLET PO SCH ×2 (09:04→21:20)
[2021-11-09 03:34] LABS: Alanine Aminotransferase 23 Units/L (7-52); Albumin 3.8 g/dL (3.5-5.7); Albumin/Globulin Ratio 1.1 (1.1-2.2); Alkaline Phosphatase 97 Units/L (34-104); Aspartate Amino Transferase 57 Units/L (13-39); BUN/Creatinine Ratio 21 (6-26); Bilirubin,Total 2.4 mg/dL (0.3-1.0); Blood Urea Nitrogen 13 mg/dL (6-20); Calcium 9.4 mg/dL (8.6-10.3); Carbon Dioxide 26 mEq/L (23-29); Chloride 101 mEq/L (98-107); Globulin 3.4 g/dL (2.4-3.5); Glucose 94 mg/dL (70-105); Osmolality,Calculated 284 (280-300); Potassium 3.1 mEq/L (3.5-5.1); Sodium 137 mEq/L (136-145); Total Protein 7.2 g/dL (6.4-8.9)
[2021-11-09] MEDS: levETIRAcetam 250 MG TABLET PO SCH (05:38)
[2021-11-09] MEDS: *HR* Enoxaparin 40 MG/0.4 ML SYRINGE SQ SCH (05:39)
[2021-11-09] MEDS: Thiamine (B-1) 100 MG TABLET PO SCH (08:34)
[2021-11-09] MEDS: Cyanocobalamin (B-12) 1,000 MCG TABLET PO SCH (08:35)
[2021-11-09] MEDS: Nicotine 14 MG PATCH.TD24 TD SCH (08:35)
[2021-11-09] MEDS: Divalproex (12 HR) 500 MG TABLET PO SCH (08:35)
[2021-11-09] MEDS: Folic Acid 1 MG TABLET PO SCH (08:35)
[2021-11-09 08:42] VITALS: BP 103/72; PULSE 81; TEMP 97.8; O2SAT 99
== END 2021-11-09 12:51 | disposition home or self-care (01) ==
LOC: EMEROOARM 04:12 → 3BNU 04:12 → SUATTDRO 10:57 → 3BNU 11:46
PROVIDERS: ADMIT Student in an Organized Health Care Education/Training Program; ATTEND Internal Medicine